=== PATIENT | female | born 1960 | race Caucasian/White ===

== ENCOUNTER 2018-10-07 19:17 | Emergency (ER) | payer MEDICARE, MEDICAID ==
[2018-10-07 19:40] VITALS: BP 174/108
[2018-10-07] MEDS ORDERED: NORMAL SALINE 1000 ML 1,000 ML IV ONE (21:29)
[2018-10-07] MEDS ORDERED: ONDANSETRON HCL INJ/PF 4 MG/2 ML SDV IV ONE (21:29)
--- NOTE | 2018-10-07 21:31 | ER Document Report ---
ED Medical Screen (RME) - General Chief Complaint: Abdominal Pain Stated Complaint: RECTAL BLEEDING Time Seen by Provider: 10/07/18 21:20 Notes: Patient is a 57-year-old female who presents emergency department with a chief complaint of rectal bleeding, vomiting, and abdominal pain. States that she started having her symptoms yesterday. She has been vomiting all night and all day. States that she noticed blood in her stool today. Past medical history includes removal of a portion of her small intestine, stents placed for strokes, and seizures. Patient states that she feels nauseous. Exam: Abdomen-tender I have greeted and performed a rapid initial assessment of this patient. A comprehensive ED assessment and evaluation of the patient, analysis of test results and completion of medical decision making process will be conducted by an additional ED providers. TRAVEL OUTSIDE OF THE [place] IN LAST 30 DAYS: No Past Medical History - Social History Chew tobacco use (# tins/day): No Frequency of alcohol use: None Drug Abuse: None - Past Medical History Cardiac Medical History: Reports: Hx Hypertension Renal/ Medical History: Denies: Hx Peritoneal Dialysis Past Surgical History: Reports: Hx Neurologic Surgery - brain aneurysm x 4 since 2011 Physical Exam - Vital signs Vitals: Temp Pulse Resp BP Pulse Ox 98.2 F 112 H 16 174/108 H 100 10/07/18 19:38 10/07/18 19:38 10/07/18 19:38 10/07/18 19:38 10/07/18 19:38 Course - Vital Signs Vital signs: Temp Pulse Resp BP Pulse Ox 98.2 F 112 H 16 174/108 H 100 10/07/18 19:38 10/07/18 19:38 10/07/18 19:38 10/07/18 19:38 10/07/18 19:38
[2018-10-07 22:47] LABS: HEMATOCRIT 46.6 % (36.0-47.0); HEMOGLOBIN 15.8 g/dL (12.0-15.5); MEAN CORPUSCULAR HEMOGLOBIN 27.9 pg (27.0-33.4); MEAN CORPUSCULAR VOLUME 82 fl (80-97); PLATELET COUNT 177 10^3/uL (150-450); RED BLOOD COUNT 5.67 10^6/uL (3.72-5.28); WHITE BLOOD COUNT 21.5 10^3/uL (4.0-10.5)
[2018-10-07 23:01] LABS: INTERNATIONAL RATION (INR) 0.89; PARTIAL THROMBOPLASTIN TIME 30.3 SEC (23.5-35.8); PROTHROMBIN TIME 12.5 SEC (11.4-15.4)
[2018-10-07 23:07] LABS: ABSOLUTE LYMPHOCYTES# (MANUAL) 3.4 10^3/uL (0.5-4.7); ABSOLUTE MONOCYTES # (MANUAL) 0.6 10^3/uL (0.1-1.4); ABSOLUTE NEUTROPHILS# (MANUAL) 17.4 10^3/uL (1.7-8.2); ANISOCYTOSIS 1+; BASOPHILS % (MANUAL) 0 % (0-2); EOSINOPHILS % (MANUAL) 0 % (0-6); LYMPHOCYTES % (MANUAL) 16 % (13-45); MONOCYTES % (MANUAL) 3 % (3-13); PLATELET COMMENT ADEQUATE; PLATELET GIANT PRESENT; PLATELET LARGE PRESENT; SEGMENTED NEUTROPHILS % (MAN) 81 % (42-78); TOTAL CELLS COUNTED 100
[2018-10-07 23:10] LABS: ALANINE AMINOTRANSFERASE 29 U/L (9-52); ALBUMIN 5.1 g/dL (3.5-5.0); ALKALINE PHOSPHATASE 102 U/L (38-126); ANION GAP 18 (5-19); ASPARTATE AMINO TRANSFERASE 25 U/L (14-36); BILIRUBIN,DIRECT 0.3 mg/dL (0.0-0.4); BILIRUBIN,TOTAL 0.5 mg/dL (0.2-1.3); BLOOD UREA NITROGEN 35 mg/dL (7-20); CALCIUM 10.9 mg/dL (8.4-10.2); CARBON DIOXIDE 25 mmol/L (22-30); CHLORIDE 97 mmol/L (98-107); GLUCOSE 120 mg/dL (75-110); POTASSIUM 3.5 mmol/L (3.6-5.0); SODIUM 140.3 mmol/L (137-145); TOTAL PROTEIN 8.9 g/dL (6.3-8.2)
[2018-10-08] MEDS ORDERED: PROMETHAZINE HCL INJ 25 MG/1 ML VIAL IV ONE (00:41)
[2018-10-08] MEDS ORDERED: MORPHINE SULFATE 10 MG/ML INJ IV ONE (01:19)
[2018-10-08] MEDS ORDERED: ONDANSETRON HCL INJ/PF 4 MG/2 ML SDV IV ONE (01:19)
--- NOTE | 2018-10-08 01:20 | RADIOLOGY REPORT (SQ) ---
EXAM DESCRIPTION: [facility]: CT ABDOMEN PELVIS WITH IV CONTRAST CLINICAL HISTORY: 57 years Female; abdominal pain; rectal bleeding CREAT 1.35 TECHNIQUE: CT of the abdomen and pelvis using intravenous 54 mL Omnipaque [address] scans at this facility use dose modulation, iterative reconstruction, and/or weight based dosing when appropriate to reduce radiation dose to as low as reasonably achievable. COMPARISON: None. FINDINGS: Abdomen: Liver:No focal lesions. No intrahepatic ductal distention. Gallbladder:Negative Pancreas:Within normal limits Spleen: Peripherally calcified structure at the inferior margin 1.6 cm diameter. Right kidney: Extrarenal pelvis is prominent. Ureter is nondistended. No ureteral calculi. No significant calyceal blunting. In the superior margin of the extrarenal pelvis there is a 7 mm calcification, likely vascular. 5 mm hypodensity in the anterolateral cortex of the upper pole is likely a cyst. No acute perinephric edema. Left kidney:No hydronephrosis. No focal lesion. Adrenal glands:Within normal limits Vascular structures: Extensive aortic calcifications. No aneurysm or dissection. At the origin of the left common iliac artery there is a 50-70% stenosis Pelvis: Small bowel:No significant distention. Appendix: Not reliably identified. No regional edema. Colon: Multiple diverticula, mostly along the sigmoid colon. No acute pericolonic edema or colonic distention. No free intraperitoneal fluid or air. Degenerative disc changes are noted in the lumbar spine. No acute bone findings. No pelvic adenopathy. IMPRESSION: 1. Colonic diverticulosis. No CT evidence for acute diverticulitis. 2. Atherosclerosis. Potentially significant stenosis at origin of left common iliac artery. 3. Prominent right extrarenal pelvis, suggesting chronic right UPJ stenosis. No significant hydronephrosis. 4. A 7 mm calcification in the right renal hilum is suspicious for partially calcified renal artery aneurysm. 5. No acute inflammatory changes. No bowel obstruction or perforation. 6. Other chronic findings as described.
[2018-10-08] MEDS ORDERED: PANTOPRAZOLE SODIUM 40 MG VIAL IV ONE (01:21)
[2018-10-08] MEDS ORDERED: RINGERS SOLUTION,LACTATED 1,000 ML IV ONE (01:23)
--- NOTE | 2018-10-08 01:23 | ER Document Report ---
ED General - General Chief Complaint: Abdominal Pain Stated Complaint: RECTAL BLEEDING Time Seen by Provider: 10/07/18 21:20 Mode of Arrival: Ambulatory Information source: Patient, [facility] Records Notes: 57-year-old female with hypertension, previous history of bowel obstruction presents with complaint of nausea, vomiting and bright red blood per rectum. Patient states that vomiting started 2 days prior to arrival. She states that she has greater than 10 episodes of nonbilious nonbloody emesis. Rectal bleeding started this morning after a night of multiple episodes of diarrhea. Patient's bowel obstruction was approximately 3 years ago. She states she had a partial colectomy that did not require an ostomy. Patient is here currently from [facility] visiting her sister. She denies sick contacts. Patient does report undergoing colonoscopy approximately 9 years ago. TRAVEL OUTSIDE OF THE [place] IN LAST 30 DAYS: No - HPI Onset: Other Onset/Duration: Gradual, Persistent Quality of pain: Cramping Severity: Moderate Associated symptoms: Diarrhea, Nausea, Vomiting, Other - Bright red blood per rectum Exacerbated by: Denies Relieved by: Denies Similar symptoms previously: Yes Recently seen / treated by doctor: No Past Medical History - General Information source: Patient - Social History Smoking Status: Current Every Day Smoker Chew tobacco use (# tins/day): No Smoking Education Provided: Yes - Smoking cessation counseling was provided for 4 minutes at the bedside Frequency of alcohol use: None Drug Abuse: None Lives with: Alone Family History: Reviewed & Not Pertinent Patient has suicidal ideation: No Patient has homicidal ideation: No - Past Medical History Cardiac Medical History: Reports: Hx Hypertension Renal/ Medical History: Denies: Hx Peritoneal Dialysis Past Surgical History: Reports: Hx Neurologic Surgery - brain aneurysm x 4 since 2011 Review of Systems - Review of Systems Notes: REVIEW OF SYSTEMS: CONSTITUTIONAL : Denies fever, chills, or sweats. Denies recent illness. Denies weight loss, recent hospitalizations. EENT: Denies visual changes, eye pain. Denies sore throat, oral lesions, difficulty swallowing. CARDIOVASCULAR: Denies chest pain. Denies palpitations. Denies lower extremity edema. RESPIRATORY: Denies cough. Denies shortness of breath, wheezing. GASTROINTESTINAL: Denies abdominal distention. Denies blood in vomitus, stools, Denies black, tarry stools. Denies constipation. GENITOURINARY: Denies difficulty urinating, painful urination, frequency, blood in urine, or vaginal discharge. MUSCULOSKELETAL: Denies back or neck pain or stiffness. Denies joint pain or swelling. SKIN: Denies rash, lesions or sores. HEMATOLOGIC : Denies easy bruising or bleeding. LYMPHATIC: Denies swollen glands. NEUROLOGICAL: Denies confusion or altered mental status. Denies loss of consciousness. Denies dizziness or lightheadedness. Denies headache. Denies weakness or paralysis. Denies problems difficulty with ambulation, slurred speech. Denies sensory loss, numbness, or tingling. Denies seizures. PSYCHIATRIC: Denies anxiety or stress. Denies depression, suicidal ideation, or homicidal ideation. Denies visual or auditory hallucinations. Physical Exam - Vital signs Vitals: Temp Pulse Resp BP Pulse Ox 98.2 F 112 H 16 174/108 H 100 10/07/18 19:38 10/07/18 19:38 10/07/18 19:38 10/07/18 19:38 10/07/18 19:38 - Notes Notes: PHYSICAL EXAMINATION: GENERAL: Well-appearing, well-nourished and in no acute distress. HEAD: Atraumatic, normocephalic. EYES: Pupils equal round and reactive to light, extraocular movements intact, conjunctiva are normal. ENT: Nares patent, oropharynx clear without exudates. Moist mucous membranes. NECK: Normal range of motion, supple without lymphadenopathy LUNGS: Breath sounds clear to auscultation bilaterally and equal. No wheezes rales or rhonchi. HEART: Regular rate and rhythm without murmurs ABDOMEN: Mild diffuse abdominal tenderness with palpation. No guarding, no rebound. No masses appreciated. Rectal: Brown stool, no active bleeding, small external hemorrhoid. Musculoskeletal: Normal range of motion, no pitting or edema. No cyanosis. NEUROLOGICAL: Cranial nerves grossly intact. Normal speech, normal gait. Normal sensory, motor exams PSYCH: Normal mood, normal affect. SKIN: Warm, Dry, normal turgor, no rashes or lesions noted. Course - Re-evaluation Re-evalutation: 10/08/18 01:23 Laboratory 10/07/18 10/07/18 10/07/18 22:21 22:21 22:21 WBC 21.5 H RBC 5.67 H Hgb 15.8 H Hct 46.6 MCV 82 MCH 27.9 MCHC 34.0 RDW 15.0 H Plt Count 177 Total Counted 100 Seg Neutrophils % Not Reportable Seg Neuts % (Manual) 81 H Lymphocytes % Not Reportable Lymphocytes % (Manual) 16 Monocytes % Not Reportable Monocytes % (Manual) 3 Eosinophils % Not Reportable Eosinophils % (Manual) 0 Basophils % Not Reportable Basophils % (Manual) 0 Absolute Neutrophils Not Reportable Abs Neuts (Manual) 17.4 H Absolute Lymphocytes Not Reportable Abs Lymphs (Manual) 3.4 Absolute Monocytes Not Reportable Abs Monocytes (Manual) 0.6 Absolute Eosinophils Not Reportable Absolute Eos (Manual) 0.0 Absolute Basophils Not Reportable Abs Basophils (Manual) 0.0 Large Platelets PRESENT Giant Platelets PRESENT Platelet Comment ADEQUATE Anisocytosis 1+ PT 12.5 INR 0.89 APTT 30.3 Sodium 140.3 Potassium 3.5 L Chloride 97 L Carbon Dioxide 25 Anion Gap 18 BUN 35 H Creatinine 1.35 H Est GFR ( Amer) 49 L Est GFR (Non-Af Amer) 40 L Glucose 120 H Calcium 10.9 H Total Bilirubin 0.5 Direct Bilirubin 0.3 Neonat Total Bilirubin Not Reportable Neonat Direct Bilirubin Not Reportable Neonat Indirect Bili Not Reportable AST 25 ALT 29 Alkaline Phosphatase 102 Total Protein 8.9 H Albumin 5.1 H Abdomen/Pelvis CT 10/07/18 21:27 IMPRESSION: 1. Colonic diverticulosis. No CT evidence for acute diverticulitis. 2. Atherosclerosis. Potentially significant stenosis at origin of left common iliac artery. 3. Prominent right extrarenal pelvis, suggesting chronic right UPJ stenosis. No significant hydronephrosis. 4. A 7 mm calcification in the right renal hilum is suspicious for partially calcified renal artery aneurysm. 5. No acute inflammatory changes. No bowel obstruction or perforation. 6. Other chronic findings as described. Temp Pulse Resp BP Pulse Ox 98.2 F 112 H 16 174/108 H 100 10/07/18 19:38 10/07/18 19:38 10/07/18 19:38 10/07/18 19:38 10/07/18 19:38 57-year-old female with hypertension, previous history of bowel obstruction presents with complaint of nausea, vomiting and bright red blood per rectum. Patient states that vomiting started 2 days prior to arrival. She states that she has greater than 10 episodes of nonbilious nonbloody emesis. Rectal bleeding started this morning after a night of multiple episodes of diarrhea. Vital signs reviewed upon arrival patient is tachycardic, hypertensive. Previous medical records and nursing notes reviewed. Patient does not appear toxic or dehydrated. But she does appear to be uncomfortable. Abdominal exam is significant for diffuse tenderness without focal tenderness to the left lower quadrant, right lower quadrant or right upper quadrant. CT of the abdomen pelvis were obtained and showed significant atherosclerotic disease including 50 to 70% stenosis of the left iliac. Patient's lower extremities are warm, nontender and with strong pulses in the femoral, popliteal, DP and PT arteries. 10/08/18 02:47 Patient reevaluated after receiving morphine, Zofran and she reports resolution of her pain and nausea. Incidental findings on her CAT scan were discussed with the patient at length including significant atherosclerosis and stenosis. Smoking cessation urged. Patient has strong DP and PT pulses bilaterally. Feet and legs are warm, nontender. Patient able to tolerate fluids prior to discharge. 10/08/18 03:29 10/08/18 03:30 Patient was evaluated and treated as appropriate for the patient's presenting symptoms and complaint, with consideration of any critical or life threatening conditions that may be associated with their obtained history and exam as noted above. All results were discussed with patient and her friend who is at the bedside. Patient provided the opportunity to ask questions, and express concerns. Patient was educated on treatments based on their presumed diagnosis as noted above. At this time we will discharge the patient with return precautions and follow-up recommendations. Verbal discharge instructions given a the bedside. Medication warnings reviewed. Patient is in agreement with this plan and has verbalized understanding of return precautions. After careful consideration I feel that that patient can be safely discharged from the emergency department, they were advised to followup with a primary care physician in 2-3 days. Dictation on this chart was performed using voice recognition software and may result in unintended grammatical, spelling, syntax or errors. - Vital Signs Vital signs: Temp Pulse Resp BP Pulse Ox 98.2 F 112 H 16 174/108 H 100 10/07/18 19:38 10/07/18 19:38 10/07/18 19:38 10/07/18 19:38 10/07/18 19:38 - Laboratory Result Diagrams: 10/07/18 22:21 10/07/18 22:21 Laboratory results interpreted by me: 10/07/18 10/07/18 22:21 22:21 WBC 21.5 H RBC 5.67 H Hgb 15.8 H RDW 15.0 H Seg Neuts % (Manual) 81 H Abs Neuts (Manual) 17.4 H Potassium 3.5 L Chloride 97 L BUN 35 H Creatinine 1.35 H Est GFR ( Amer) 49 L Est GFR (Non-Af Amer) 40 L Glucose 120 H Calcium 10.9 H Total Protein 8.9 H Albumin 5.1 H - Diagnostic Test Radiology reviewed: Image reviewed, Reports reviewed Discharge - Discharge Clinical Impression: Nausea vomiting and diarrhea, Generalized abdominal pain, Atherosclerotic cardiovascular disease, Diverticulosis, Tobacco dependence, Bright red blood per rectum Condition: Good Disposition: HOME, SELF-CARE Instructions: Abdominal Pain ([facility]), Diarrhea, Nonspecific ([facility]), Intravenous (IV) Fluids ([facility]), Rectal Bleeding, Unclear Cause ([facility]), Vomiting ([facility]) Additional Instructions: Your CAT scan today shows significant arterial disease likely secondary to smoking. It also showed narrowing of your vessels in your abdomen and the vessels leading into your legs. It is imperative that you follow-up with your primary care physician and a vascular surgeon when you return home. Please bring the copy of your imaging report with you to your primary care physician's office. Please follow-up with him as soon as you can. Follow up with your [id number] hours for further care or return to the ED IMMEDIATELY if symptoms worsen or you have any concerns. If you cannot afford to follow up with your primary care physician a list of low cost clinics have been provided at the end of your discharge papers as well. Most prescribed medications have multiple side effects. The safest thing to do is when filling your prescription speak to your pharmacist regarding possible interactions with your normal home medications and over the counter medications such as Ibuprofen, Tylenol, Benadryl. If you experience any symptoms that cause you discomfort or concern you should discontinue the medication immediately and return to the emergency room or call your primary care physician. Prescriptions: Ondansetron [Zofran Odt 4 mg Tablet] 1 - 2 tab PO Q4H PRN #15 tab.rapdis PRN Reason: For Nausea/Vomiting Forms: Smoking Cessation Education, Elevated Blood Pressure Referrals: JACOBO GARCIA MD [ACTIVE STAFF] - Follow up in 3-5 days
[2018-10-08] MEDS ORDERED: METRONIDAZOLE 500 MG TABLET PO ONE (02:16)
[2018-10-08] MEDS ORDERED: CIPROFLOXACIN 400 MG/D5W RTU 400 MG/200 ML RTUPB IV SCH (02:30)
[2018-10-08] MEDS ORDERED: HYDROCODONE/ACETAMINOPHEN 5-325 MG (6 TAB/ER DISP) PO PRN (02:56)
== END 2018-10-08 04:15 | disposition home or self-care (01) ==
LOC: ER 19:17
DX: R10.84 Generalized abdominal pain (principal); K57.30 Diverticulosis of large intestine without perforation or abscess without bleeding; R00.0 Tachycardia, unspecified; I70.8 Atherosclerosis of other arteries; I25.10 Atherosclerotic heart disease of native coronary artery without angina pectoris; I10 Essential (primary) hypertension; R10.817 Generalized abdominal tenderness; K64.9 Unspecified hemorrhoids; K62.5 Hemorrhage of anus and rectum; R11.2 Nausea with vomiting, unspecified; R19.7 Diarrhea, unspecified; F17.200 Nicotine dependence, unspecified, uncomplicated; Z71.6 Tobacco abuse counseling; Z87.19 Personal history of other diseases of the digestive system
CPT/HCPCS: 96376; 99284 ×2; 96372; 96361 ×2; 96374; 96375; 96365; 36415 ×2; 83690; 85025 ×2; 85610; 85730; 80053 ×2; 81001; 74022; 74177; J2270; C9113; J2550; J2405 ×2; A9270; J7030 ×2; J7120; J0744; S0164

== ENCOUNTER 2018-10-08 18:27 | Emergency (ER) | payer MEDICARE, MEDICAID ==
[2018-10-08] MEDS ORDERED: ONDANSETRON HCL INJ/PF 4 MG/2 ML SDV IV ONE (19:47)
[2018-10-08] MEDS ORDERED: NORMAL SALINE 1000 ML 1,000 ML IV ONE (19:47)
--- NOTE | 2018-10-08 19:50 | ER Document Report ---
ED Medical Screen (RME) - General Chief Complaint: Abdominal Pain Stated Complaint: ABDOMINAL PAIN Time Seen by Provider: 10/08/18 19:42 Mode of Arrival: Medic Information source: Patient TRAVEL OUTSIDE OF THE [place] IN LAST 30 DAYS: No - HPI Patient complains to provider of: JULIO WRIGHT, N/V Notes: 10/08/18 19:48 Patient is here with complaints of abdominal pain with nausea vomiting. Patient was seen yesterday for the same symptoms. Lab work showed a white count of 21, the remainder of her labs were unremarkable. CT the abdomen pelvis showed no acute abnormalities within the abdomen and pelvis with a 50 to 70% stenosis in the iliac artery. Patient was instructed instructed that she had these findings. She does have a history of prior abdominal surgeries as well as bowel obstruction. Patient's states that she is now having worsening pain, she has not been able to keep anything at all down today. Exam Patient appears uncomfortable, holding a vomit bag. Mild diffuse tenderness to palpation of her abdomen on limited triage abdominal exam. Lungs clear and equal throughout. Mild tachycardia. Heart sounds otherwise normal. Plan CBC, CMP, lipase, urine, saline lock, Zofran, fluids. Since she just had a CT done yesterday, I have ordered plain films to assess for signs of possible obstruction due to her history. An initial examination was made on the patient as part of the triage process, and it was determined a more comprehensive evaluation was necessary. Initial labs were ordered and patient was transferred to another provider in the ED who assumed care and finished evaluation and plan. - Related Data Allergies/Adverse Reactions: No Known Allergies Allergy (Unverified 10/08/18 18:38) Past Medical History - Past Medical History Cardiac Medical History: Reports: Hx Hypertension Renal/ Medical History: Denies: Hx Peritoneal Dialysis Past Surgical History: Reports: Hx Neurologic Surgery - brain aneurysm x 4 since 2011 Physical Exam - Vital signs Vitals: Temp Pulse Resp BP Pulse Ox 98.6 F 96 18 158/112 H 95 10/08/18 18:46 10/08/18 18:46 10/08/18 18:46 10/08/18 18:46 10/08/18 18:46 Course - Vital Signs Vital signs: Temp Pulse Resp BP Pulse Ox 98.6 F 96 18 158/112 H 95 10/08/18 18:46 10/08/18 18:46 10/08/18 18:46 10/08/18 18:46 10/08/18 18:46
--- NOTE | 2018-10-08 20:40 | RADIOLOGY REPORT (SQ) ---
EXAM DESCRIPTION: XR ABDOMEN SUPINE AND ERECT WITH CHEST (ABD ACUTE SERIES) COMPLETED DATE/TME: 10/08/2018 19:48 CLINICAL HISTORY: 57 years Female ,ABDO PAIN, N/V COMPARISON: None. TECHNIQUE: Frontal view chest x-ray and two views of the abdomen. FINDINGS: The cardiomediastinal silhouette appears unremarkable. No consolidating infiltrates or pleural effusions. No free air is identified beneath the hemidiaphragms. No dilated loops of bowel to suggest obstruction. Mild S-type thoracic lumbar scoliosis. Calcific density in the left upper quadrant correlates with focus of calcification in the inferior aspect of the spleen likely a splenic cyst. An additional curvilinear calcification in the left upper quadrant measuring 1.5 cm likely a splenic artery aneurysm. Note is also made of the area of calcification in the region of the right renal artery which may reflect a right renal artery aneurysm. IMPRESSION: No acute plain film abnormality is identified. 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 NUMBER OF VIEWS: TECHNIQUE: LIMITATIONS: None. FINDINGS: IMPRESSION: copyright 2010 [employer]- All Rights Reserved
[2018-10-08 20:46] LABS: HEMATOCRIT 47.3 % (36.0-47.0); HEMOGLOBIN 16.1 g/dL (12.0-15.5); MEAN CORPUSCULAR HEMOGLOBIN 27.7 pg (27.0-33.4); MEAN CORPUSCULAR VOLUME 81 fl (80-97); PLATELET COUNT 180 10^3/uL (150-450); RED BLOOD COUNT 5.83 10^6/uL (3.72-5.28); RED CELL DISTRIBUTION WIDTH 14.8 % (11.5-14.0); WHITE BLOOD COUNT 22.6 10^3/uL (4.0-10.5)
[2018-10-08 20:57] LABS: ALANINE AMINOTRANSFERASE 24 U/L (9-52); ALBUMIN 5.2 g/dL (3.5-5.0); ALKALINE PHOSPHATASE 103 U/L (38-126); ASPARTATE AMINO TRANSFERASE 32 U/L (14-36); BILIRUBIN,DIRECT 0.4 mg/dL (0.0-0.4); BILIRUBIN,TOTAL 0.9 mg/dL (0.2-1.3); BLOOD UREA NITROGEN 22 mg/dL (7-20); CALCIUM 10.4 mg/dL (8.4-10.2); GLUCOSE 117 mg/dL (75-110); LIPASE 61.9 U/L (23-300); POTASSIUM 3.5 mmol/L (3.6-5.0)
[2018-10-08 21:02] LABS: ABSOLUTE LYMPHOCYTES# (MANUAL) 2.5 10^3/uL (0.5-4.7); ABSOLUTE MONOCYTES # (MANUAL) 1.1 10^3/uL (0.1-1.4); BASOPHILS % (MANUAL) 0 % (0-2); CARBON DIOXIDE 27 mmol/L (22-30); CHLORIDE 93 mmol/L (98-107); EOSINOPHILS % (MANUAL) 0 % (0-6); LYMPHOCYTES % (MANUAL) 11 % (13-45); MONOCYTES % (MANUAL) 5 % (3-13); SEGMENTED NEUTROPHILS % (MAN) 84 % (42-78); SODIUM 140.3 mmol/L (137-145); TOTAL CELLS COUNTED 100
[2018-10-08 21:04] LABS: ANISOCYTOSIS SLIGHT
[2018-10-08 21:05] LABS: PLATELET CLUMPS PRESENT; PLATELET COMMENT ADEQUATE; PLATELET LARGE PRESENT
[2018-10-08 21:09] LABS: ANION GAP 20 (5-19)
[2018-10-09 02:02] LABS: APPEARANCE,URINE CLEAR; BILIRUBIN,URINE NEGATIVE (NEGATIVE); COLOR,URINE STRAW; GLUCOSE, URINE NEGATIVE (NEGATIVE); KETONES,URINE 20 mg/dL (NEGATIVE); LEUKOCYTE ESTERASE,URINE NEGATIVE (NEGATIVE); NITRITE,URINE NEGATIVE (NEGATIVE); PROTEIN,URINE 100 mg/dL (NEGATIVE); UROBILINOGEN,URINE NEGATIVE mg/dL (<2.0)
[2018-10-09] MEDS ORDERED: PROMETHAZINE HCL INJ 25 MG/1 ML VIAL IM ONE (03:00)
--- NOTE | 2018-10-09 03:07 | ER Document Report ---
ED General - General Chief Complaint: Abdominal Pain Stated Complaint: ABDOMINAL PAIN Time Seen by Provider: 10/08/18 19:42 Mode of Arrival: Medic TRAVEL OUTSIDE OF THE [place] IN LAST 30 DAYS: No - HPI Notes: Patient is a 57-year-old female with multiple medical issues, including history of multiple bowel surgeries and obstruction, who presents to the emergency department for evaluation of nausea, vomiting, abdominal pain. She was actually seen here yesterday for similar. She states since then she has not keeping anything down. She states that her vomit has been yellow. She states she had one bowel movement today and it was mostly bright red blood. Her pain is diffuse and crampy in nature. No known fevers. No urinary symptoms. She does have a history of high blood pressure. She states she takes lisinopril 40 mill grams daily. She has not had in the last 2 days that she has not been able to keep anything down. - Related Data Allergies/Adverse Reactions: No Known Allergies Allergy (Unverified 10/08/18 18:38) Past Medical History - General Information source: Patient - Social History Smoking Status: Current Every Day Smoker Family History: Reviewed & Not Pertinent Patient has suicidal ideation: No Patient has homicidal ideation: No - Past Medical History Cardiac Medical History: Reports: Hx Coronary Artery Disease, Hx Hypertension Renal/ Medical History: Denies: Hx Peritoneal Dialysis GI Medical History: Reports: Hx Gastritis Past Surgical History: Reports: Hx Neurologic Surgery - brain aneurysm x 4 since 2011, Other - Partial colectomy Review of Systems - Review of Systems Constitutional: Malaise EENT: No symptoms reported Cardiovascular: No symptoms reported Respiratory: No symptoms reported Gastrointestinal: See HPI Genitourinary: No symptoms reported Musculoskeletal: No symptoms reported Skin: No symptoms reported Neurological/Psychological: No symptoms reported Physical Exam - Vital signs Vitals: Temp Pulse Resp BP Pulse Ox 98.6 F 96 18 158/112 H 95 10/08/18 18:46 10/08/18 18:46 10/08/18 18:46 10/08/18 18:46 10/08/18 18:46 - Notes Notes: Vital signs reviewed, please refer to chart. Patient is normocephalic, atraumatic. Pupils equal round, reactive to light. Neck is supple without meningismus. Heart is regular rate and rhythm. Lungs are clear to auscultation bilaterally. Abdomen is soft, diffusely tender without rebound or guarding, normoactive bowel sounds throughout. Extremities without cyanosis, clubbing, edema. Peripheral pulses are equal. Skin is warm and dry. Patient is awake, alert, neurological exam is nonfocal. Rectal exam performed. External hemorrhoid noted. Small amount of bright red blood in the rectal vault. Course - Re-evaluation Re-evalutation: 10/09/18 03:04 Patient presents to the emergency department for evaluation. She had laboratory investigations ordered through triage, as well as abdominal series. I did review her CT scan from yesterday, which showed some vascular issues, diverticulosis, but nothing acute. Plain films today failed to show any signs of obstruction. Laboratory investigations today revealed an elevated white blood cell count, hemoglobin is not significantly changed. Serial abdominal exams are globally tender but nonfocal, nonsurgical. Patient claims to have vomited multiple times. I spoke with nursing, multiple PCT's. No emesis was witnessed here. She does not have any emesis in her bag, and her garbage can, or in her sink. Patient asks again for something for nausea, states the Phenergan normally works better. At this point I do not see any acute pathology which would warrant admission to the hospital. She is not dehydrated. She was given IV fluids here. We will go ahead and give her some IM Phenergan. She has had endoscopy and colonoscopy in the past. She is here visiting her sister from out of town. She needs to follow-up with her primary care physician as well as her literacy teacher. She is to return to the emergency department with worsening or new concerning symptoms of any sort. 10/09/18 03:25 Patient's blood pressure was elevated here. She has a nonfocal neurological exam. She is not having any chest pain, difficulty breathing. She did urinate here. She has no signs of endorgan damage. She has not been able to keep down her blood pressure medicines. Will order lisinopril 40 mg and continue to mon itor. - Vital Signs Vital signs: Temp Pulse Resp BP Pulse Ox 98.7 F 96 18 156/106 H 96 10/09/18 03:02 10/08/18 18:46 10/08/18 18:46 10/09/18 02:30 10/09/18 03:02 - Laboratory Result Diagrams: 10/08/18 20:25 05/01/19 20:25 Laboratory results interpreted by me: 10/08/18 10/08/18 10/09/18 20:25 20:25 01:29 WBC 22.6 H RBC 5.83 H Hgb 16.1 H Hct 47.3 H RDW 14.8 H Seg Neuts % (Manual) 84 H Lymphocytes % (Manual) 11 L Abs Neuts (Manual) 19.0 H Potassium 3.5 L Chloride 93 L Anion Gap 20 H BUN 22 H Glucose 117 H Calcium 10.4 H Total Protein 9.0 H Albumin 5.2 H Urine Protein 100 H Urine Ketones 20 H Discharge - Discharge Clinical Impression: Generalized abdominal pain, Bright red blood per rectum, Nausea and vomiting Condition: Stable Disposition: HOME, SELF-CARE Instructions: Abdominal Pain ([facility]), Antinausea Medication ([facility]), Intravenous (IV) Fluids ([facility]) Additional Instructions: Clear liquids only. Advance slowly to bland diet. You need to follow-up with your primary care physician within 1 week. Go back to gastroenterology for further evaluation. Return to emergency department with worsening or new concerning symptoms of any sort.
[2018-10-09 03:16] VITALS: BP 156/106
[2018-10-09] MEDS ORDERED: LISINOPRIL 10 MG TABLET PO ONE (03:24)
== END 2018-10-09 03:40 | disposition home or self-care (01) ==
LOC: ER 18:27
DX: K57.90 Diverticulosis of intestine, part unspecified, without perforation or abscess without bleeding (principal); R11.2 Nausea with vomiting, unspecified; R10.84 Generalized abdominal pain; R19.5 Other fecal abnormalities; R19.7 Diarrhea, unspecified; R10.9 Unspecified abdominal pain; F17.200 Nicotine dependence, unspecified, uncomplicated; I10 Essential (primary) hypertension; I25.10 Atherosclerotic heart disease of native coronary artery without angina pectoris
CPT/HCPCS: 99284; 96372; 96361; 96374; 36415; 83690; 85025; 80053; 81001; 74022; J2550; J2405; J7030; A9270

== ENCOUNTER 2019-05-02 10:40 | Emergency (ER) | payer MEDICARE, MEDICAID ==
--- NOTE | 2019-05-02 11:01 | ER Document Report ---
ED Medical Screen (RME) - General Chief Complaint: Abdominal Pain Stated Complaint: ABDOMINAL PAIN Time Seen by Provider: 05/02/19 10:58 TRAVEL OUTSIDE OF THE [place] IN LAST 30 DAYS: No - HPI Notes: 05/02/19 10:58 Patient is a 58-year-old female who arrived by ambulance complaining of mid abdominal pain that is described as severe as well as nausea and vomiting that began today. Patient does have a history of GI surgeries, obstruction, diverticulosis. Patient does have hypertension, but did not take her medicine today. She is currently 220 over 100's. Patient did arrive tachycardic and tachypneic without fever. I have treated and performed a rapid initial assessment of this patient. A comprehensive ED assessment and evaluation of the patient, analysis of test results and completion of medical decision making process will be conducted by additional ED providers. PHYSICAL EXAMINATION: GENERAL: Pt appears uncomfortable with noted bile in emesis bag. Abd: + tenderness throughout increased to mid/lower. Heart: tachycardic. - Related Data Allergies/Adverse Reactions: No Known Allergies Allergy (Unverified 10/08/18 18:38) Past Medical History - Past Medical History Cardiac Medical History: Reports: Hx Coronary Artery Disease, Hx Hypertension Renal/ Medical History: Denies: Hx Peritoneal Dialysis GI Medical History: Reports: Hx Gastritis Past Surgical History: Reports: Hx Neurologic Surgery - brain aneurysm x 4 since 2011, Other - Partial colectomy
[2019-05-02] MEDS ORDERED: METOCLOPRAMIDE HCL INJ/PF 10 MG/2 ML SDV IV ONE (11:05)
--- NOTE | 2019-05-02 11:14 | ER Document Report ---
ED General - General Chief Complaint: Abdominal Pain Stated Complaint: ABDOMINAL PAIN Time Seen by Provider: 05/02/19 10:58 TRAVEL OUTSIDE OF THE [place] IN LAST 30 DAYS: No - HPI Notes: 58wf she reports h/o "multiple craniotomies to perform clippings of various "brain aneurysms" most recent yr ago, asys also has h/o "aneurysms in kidneys", "mult bowel surgeries for adhesions last performed >1 y/a--all [place] state), htn, bib today by ems she says for severe abd pain and vomiting/nausea, inability to hold down meds/food. she says this abdominal pain if very generalized and all over her abdomen, and has been worsening since last night. overnight last night had ++nasusea & ~4 episodes of nonbloody vomiting keeping her up much of night. last meal yesterday, last usual meds were pm meds but started vomited hr after those. EMS report gave 4 odt zofran; pt says hasn't helped and she threw up soon after that once placed in ED room here right before i'm interviewing her. she denies larsen/chest pain, focal neuro deficits or vision chagnes. denies new falls or trauma. Last BM yesterday was ok she said hasn't noticed passing gas today. pain worse w/ vomiting. deneis any other recent diarr hea, difficulty w/ bm, f/c/s. only records available to access via EMR show most recent med refills by sung lorenzo, latrell vidal and roly oconnell on 03/17/19 for 30d suppy 10mg norvasc, 20mg lisinopril, statin 40mg QD - Related Data Allergies/Adverse Reactions: latex Allergy (Verified 05/08/19 16:28) Past Medical History - General Information source: Patient - poor historian, initially hx very limitied 2/2 actively vomiting and pain - Social History Smoking Status: Unknown if Ever Smoked Drug Abuse: Other - she ddnies ilicit drug use in a very generalized question (didn't probe her about detials of any other substance use dependence) Family History: Reviewed & Not Pertinent Patient has suicidal ideation: No Patient has homicidal ideation: No - Past Medical History Cardiac Medical History: Reports: Hx Coronary Artery Disease, Hx Hypertension Renal/ Medical History: Denies: Hx Peritoneal Dialysis GI Medical History: Reports: Hx Gastritis. Denies: Hx Crohn's Disease, Hx Hiatal Hernia, Hx Irritable Bowel, Hx Liver Failure, Hx Pancreatitis, Hx Ulcer, Hx Ulcerative Colitis Past Surgical History: Reports: Hx Neurologic Surgery - brain aneurysm x 4 since 2011, Other - Partial colectomy Review of Systems - Review of Systems Constitutional: See HPI, Weakness. denies: Chills, Diaphoresis, Fever, Weight gain, Weight loss, Recent illness EENT: No symptoms reported Cardiovascular: No symptoms reported Respiratory: No symptoms reported Gastrointestinal: See HPI, Vomiting, Poor appetite, Poor fluid intake. denies: Abdomen distended, Diarrhea, Constipation, Blood streaked bowels, Blood in vomit, Black stools, Rectal bleeding, Fecal incontinence Genitourinary: No symptoms reported Female Genitourinary: No symptoms reported Musculoskeletal: No symptoms reported Skin: No symptoms reported Hematologic/Lymphatic: No symptoms reported Neurological/Psychological: No symptoms reported Physical Exam - Vital signs Vitals: Temp 98.7 F 05/02/19 10:41 Interpretation: Hypertensive, Tachycardic - first few sets of initial VS performed during active retching/vomiting episodes - General General appearance: Alert, Other In distress: Moderate - 2/2 active vomiting - HEENT Head: Normocephalic, Atraumatic. No: Abrasions Eyes: No: Pale conjunctiva, Scleral icterus Conjunctiva: No: Injected Extraocular movements intact: Yes Pupils: PERRL Nerve palsy: No Visual graff normal: Yes - grossly External canal: Normal Tympanic membrane: Normal Sinus: Normal Nasal: Normal Mouth/Lips: No: Laceration, Lesions Mucous membranes: Dry Pharynx: Normal. No: Erythema, Exudate Neck: Supple. No: Lymphadenopathy, Meningismus, Neck mass, Thyroid nodule, Thyromegally - Respiratory Respiratory status: No respiratory distress. No: Respiratory distress - when not vomiting at rest no respiratory distress or hypoxia, Agonal respirations, Cyanosis, Labored, Pursed lip breathing, Retractions Chest status: Nontender. No: Ecchymosis, Wounds Breath sounds: Normal. No: Rales, Rhonchi, Stridor, Wheezing - Cardiovascular Rhythm: Regular, Tachycardia Murmur: No Friction rub: No Gallop: None auscultated Pulses: Normal: Radial - tachy symm b/l , Dorsalis pedis - tachy symm b/l Normal capillary refill: Yes - Abdominal Inspection: Other - no overlying skin changes. No: Caput medussa, Striae, Wounds Distension: No distension. No: Tympanitic, Distended bladder Bowel sounds: Hypoactive Tenderness: Tender - very diffuse nonfocal exam +guarding w/o rebound, Guarding. No: McBurney's point, Prasad's sign, Rebound Organomegaly: No organomegaly - Back Back: No: Deformity/step-off, CVA tenderness, Vertebra tenderness, Scoliosis, Wounds - Extremities General upper extremity: Normal inspection General lower extremity: Normal inspection Hip: Normal. No: Tender, Ecchymosis Thigh: Normal. No: Tender, Ecchymosis - Neurological Neuro grossly intact: Yes Cognition: Normal Orientation: AAOx4 Brianna Coma Scale Eye Opening: Spontaneous Brianna Coma Scale Verbal: Oriented Brianna Coma Scale Motor: Obeys Commands [place] Coma Scale Total: 15 Speech: Normal Cranial nerves: Normal Cerebellar coordination: Normal Motor strength normal: LUE, RUE, LLE, RLE Additional motor exam normals: No: Involuntary movements, Pronator drift Sensory: Normal - Psychological Associated symptoms: Normal affect, Normal mood. No: Aggressive, Agitated, Combative - Skin Skin Temperature: Warm Skin Moisture: Dry Skin Color: Normal Skin irregularity: negative: Erythema, Lesion, Rash Course - Vital Signs Vital signs: Temp Pulse Resp BP Pulse Ox 98.3 F 18 152/85 H 100 05/02/19 16:16 05/02/19 16:55 05/02/19 16:55 05/02/19 16:55 briefly saw pt when initially roomed since activing vomiting and tachycardic very hypertensive, reporting significant diffuse abd pain, had vomit x1 in emesis bag nonbloody. started 1st liter LR and admin 0.5 dilaudid iv, 25 phergan iv which significant improvement in BP, hr and pain level. did not have to give labetalol id ordered for event that her VS hadn't improved w/ control of sx. started 2nd L ivlr. HR and BP remained ~100 and 150/90 which from past seemed to be her usual when not in extremis actively vomiting. labs reviewed: renal funciton wnl. K slightly low 3.4, otherwise metab panel wnl. lipase neg. wbc 17 w/ left shift. the few prior times she's been to our system wbc in 20s, her being ill those times though. her H/H wnl. UA showed ketones, glu, prot. lactic acid 2.1 which were all sent prior to 2l ivf. does not have h/o DM serum glu wnl. labs c/w history vomiting and no po intake >12 hr. she cont to report having no cp or sob. her abd pain was significantly better ~1 hrs s/p initial Rxs. i rec we try oral meds to see if she could keep them down. she reported improvement w/ po tylenol. VS remained stable and remained afebrile CT a/p w/ iv contrast: didn't show any evidence of partial/complete SBO, and no inflammatoy changes. +diverticulosis w/o -itis. no evidence of pancreatic or GB process/inflammation. 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 pt did appear mcuh improved, and agreed could fill her two bp meds tonight if i were to write her a few days until she saw her pcp (calling jd for 1st available and to let them know she's been out of meds and had an ED visit. also wrote her short course of oral potassium if needed but instructed she can obtain in her diet w/ fruits, vegetables, juices. i suggested i didn't find a specific explanation for her vomiting and pain on her CT scan, but that her abdomen is soft now, and she is tolerating po; she said she felt comfortable w/ disposition to d/c home, but says in event of any return of nausea/vomiting or pain would need to seek immediate medical attention. i suggested it could have been a very transient bowel obstruction, but we should have seen some evidence of inflammatory change on her CT. we discussed the dangers of her BP being uncontrolled w/ her history of aneurysms in multiple locations including brain which would increase her risk of rupture; therefore of utmost importance she not let her meds lapse again. she says she understands. she also agrees if she does develop ANY headache/vision change dizziness, vertigo, vomiting, chest pain or sob or weakness or near/passing out these are absolute reasons she'll need to seek attn prior to her PCP appt. 05/12/19 23:35 - Laboratory Result Diagrams: 05/02/19 11:05 05/02/19 11:05 Laboratory results interpreted by me: 05/02/19 05/02/19 05/02/19 11:05 11:05 14:40 WBC 17.4 H RBC 5.99 H Hgb 16.0 H Hct 48.1 H MCH 26.6 L RDW 15.2 H Plt Count 122 L Seg Neuts % (Manual) 94 H Lymphocytes % (Manual) 3 L Abs Neuts (Manual) 16.4 H Potassium 3.5 L Glucose 161 H Calcium 10.5 H AST 94 H Total Protein 9.1 H Albumin 5.3 H Urine Protein >=500 H Urine Glucose (UA) 50 H Urine Ketones 20 H - Diagnostic Test Radiology reviewed: Image reviewed - cxr 1v upright no free air under diaphragm, no other apparent acute pulmonary/thoracic process on this 1v. CT a/p w/ iv contrast rad interpretation reviewed: unchanged 1.4 cm aneurysm of splenic vs? gastric branch artery, unchanged 9mm calcified aneur superior pole R renal aa, unchanged dilation R renal pelvis w/o stone obstruc. + diverticulosis w/o assc inflammation. no evidence GB disease., Reports reviewed - EKG Interpretation by Me Additional EKG results interpreted by me: 05/12/19 23:33 sinus tachycardia rate 100s, evidence of LVH w/o prior ecg for comparison. intervals wnl, voltage wnl. no ST elev/dep or other ischemic patterns. Discharge - Discharge Clinical Impression: Vomiting, Abdominal pain, History of aneurysm of visceral vessel, History of cerebral aneurysm Condition: Fair Disposition: HOME, SELF-CARE Additional Instructions: Please watch for any fevers chills sweats, return of abdominal pain that persists, inability to pass gas or have a bowel movement or return of vomiting. Your CT today showed no evidence of obstruction or inflammatory process, and your abdominal exam was reassuring after we treated your nausea. Therefore it may have been that you did have a very intermittent obstruction, and for this reason I just want you to watch out for those signs above and seek medical attention if he were to have them again. Otherwise follow-up with your regular doctor as scheduled on May 12. Your potassium here was slightly low at 3.5 (normal 4), therefore you can feel the potassium tablet I have prescribed or just get more potassium in your diet through fruits and vegetables.
[2019-05-02 11:25] LABS: HEMATOCRIT 48.1 % (36.0-47.0); MEAN CORPUSCULAR HEMOGLOBIN 26.6 pg (27.0-33.4); MEAN CORPUSCULAR HGB CONC 33.2 g/dL (32.0-36.0); MEAN CORPUSCULAR VOLUME 80 fl (80-97); PLATELET COUNT 122 10^3/uL (150-450); RED BLOOD COUNT 5.99 10^6/uL (3.72-5.28); RED CELL DISTRIBUTION WIDTH 15.2 % (11.5-14.0); WHITE BLOOD COUNT 17.4 10^3/uL (4.0-10.5)
[2019-05-02] MEDS: NORMAL SALINE 1000 ML 1,000 ML IV PRN ×2 (11:35→12:49)
[2019-05-02] MEDS ORDERED: PROMETHAZINE HCL INJ 25 MG/1 ML VIAL IV ONE (11:40)
[2019-05-02] MEDS ORDERED: HYDROMORPHONE HCL INJ/PF 2 MG/ML AMPULE IV ONE (11:40)
[2019-05-02 11:42] LABS: ALBUMIN 5.3 g/dL (3.5-5.0); ALKALINE PHOSPHATASE 118 U/L (38-126); ANION GAP 19 (5-19); ASPARTATE AMINO TRANSFERASE 94 U/L (14-36); BILIRUBIN,DIRECT 0.2 mg/dL (0.0-0.4); BILIRUBIN,TOTAL 0.9 mg/dL (0.2-1.3); BLOOD UREA NITROGEN 15 mg/dL (7-20); CALCIUM 10.5 mg/dL (8.4-10.2); CARBON DIOXIDE 25 mmol/L (22-30); CHLORIDE 98 mmol/L (98-107); GLUCOSE 161 mg/dL (75-110); POTASSIUM 3.5 mmol/L (3.6-5.0); TOTAL PROTEIN 9.1 g/dL (6.3-8.2)
[2019-05-02 11:53] LABS: ABSOLUTE LYMPHOCYTES# (MANUAL) 0.5 10^3/uL (0.5-4.7); ABSOLUTE MONOCYTES # (MANUAL) 0.5 10^3/uL (0.1-1.4); BASOPHILS % (MANUAL) 0 % (0-2); EOSINOPHILS % (MANUAL) 0 % (0-6); LYMPHOCYTES % (MANUAL) 3 % (13-45); MONOCYTES % (MANUAL) 3 % (3-13); SEGMENTED NEUTROPHILS % (MAN) 94 % (42-78); TOTAL CELLS COUNTED 100
[2019-05-02 11:54] LABS: ANISOCYTOSIS SLIGHT; PLATELET COMMENT DECREASED; PLATELET LARGE PRESENT
[2019-05-02] MEDS ORDERED: LABETALOL HCL INJ 20 MG/4 ML DISP.SYRIN IV PRN (11:55)
--- NOTE | 2019-05-02 12:43 | RADIOLOGY REPORT (SQ) ---
EXAM DESCRIPTION: CHEST SINGLE VIEW COMPLETED DATE/TIME: 05/02/2019 12:17 pm REASON FOR STUDY: n/v, tachy COMPARISON: None. EXAM PARAMETERS: NUMBER OF VIEWS: One view. TECHNIQUE: Single frontal radiographic view of the chest acquired. RADIATION DOSE: NA LIMITATIONS: None. FINDINGS: LUNGS AND PLEURA: No opacities, masses or pneumothorax. No pleural effusion. MEDIASTINUM AND HILAR STRUCTURES: No masses. Contour normal. HEART AND VASCULAR STRUCTURES: Cardiomegaly. BONES: No acute findings. HARDWARE: None in the chest. OTHER: No other significant finding. IMPRESSION: No acute abnormality of the lungs in frontal projection. TECHNICAL DOCUMENTATION: JOB ID: [id number] [employer]- All Rights Reserved Reading location - IP/workstation name: [email or web address]
[2019-05-02] MEDS ORDERED: METOCLOPRAMIDE HCL 10 MG TABLET PO ONE (13:05)
--- NOTE | 2019-05-02 13:35 | RADIOLOGY REPORT (SQ) ---
EXAM DESCRIPTION: CT ABD/PELVIS WITH IV ONLY COMPLETED DATE/TIME: 05/02/2019 1:10 pm REASON FOR STUDY: abd pain, n/v, not able to tolerate PO COMPARISON: 10/08/2018 TECHNIQUE: CT scan of the abdomen and pelvis performed using helical scanning technique with dynamic intravenous contrast injection. No oral contrast. Images reviewed with lung, soft tissue, and bone windows. Reconstructed coronal and sagittal MPR images reviewed. Delayed images for evaluation of the urinary system also acquired. All images stored on PACS. All CT scanners at this facility use dose modulation, iterative reconstruction, and/or weight based d osing when appropriate to reduce radiation dose to as low as reasonably achievable (ALARA). [facility]: Dose Right [facility]: CareDose [facility]: Dose Right [facility]: Teradose 4D [facility]: [employer] [place] CONTRAST TYPE AND DOSE: contrast/concentration: Isovue 350.00 mg/ml; Total Contrast Delivered: 58.0 ml; Total Saline Delivered: 65.0 ml RENAL FUNCTION: GFR > 60. RADIATION DOSE: CT Rad equipment meets quality standard of care and radiation dose reduction techniq ues were employed. CTDIvol: 5.0 - 5.6 mGy. DLP: 822 mGy-cm.. LIMITATIONS: None. FINDINGS: LOWER CHEST: No significant findings. No nodules or infiltrates. LIVER: Normal size. No masses. No dilated ducts. SPLEEN: Normal size. No focal lesions. PANCREAS: No masses. No significant calcifications. No adjacent inflammation or peripancreatic fluid collections. Pancreatic duct not dilated. GALLBLADDER: No identified stones by CT criteria. No inflammatory changes to suggest cholecystitis. ADRENAL GLANDS: No significant masses or asymmetry. RIGHT KIDNEY AND URETER: No solid masses. No significant calcifications. Unchanged dilation of th e right renal pelvis without evidence of obstructing calculus. LEFT KIDNEY AND URETER: No solid masses. No significant calcifications. No hydronephrosis or hydr oureter. AORTA AND VESSELS: There is an unchanged 9 mm calcified aneurysm of a superior pole branch right esha l artery (series 601, image 32). Unchanged 1.4 cm aneurysm of the splenic artery or left gastric bra nch vessel, difficult to discern on this examination (series 601, image 31). No dissection. Renal ar teries, SMA, celiac without stenosis. Calcific atherosclerosis. RETROPERITONEUM: No retroperitoneal adenopathy, hemorrhage or masses. BOWEL AND PERITONEAL CAVITY: No masses or inflammatory changes. No free fluid or peritoneal masses. Diverticulosis without evidence of acute diverticulitis. APPENDIX: Not clearly visualized. PELVIS: No mass. No free fluid. Mildly distended urinary bladder. ABDOMINAL WALL: No masses. No hernias. BONES: No significant or acute findings. OTHER: No other significant finding. IMPRESSION: 1. No acute CT findings of the abdomen or pelvis to explain diffuse abdominal pain. 2. Unchanged dilation of the right renal pelvis without evidence of obstructing calculus. There may be a right ureteropelvic junction stricture. This may be further evaluated by nonemergent scintigrap hic nuclear renal scan if desired. 3. Mildly distended urinary bladder. Correlate for urinary retention. 4. Diverticulosis without evidence of acute diverticulitis. 5. 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 Unchanged 1.4 cm aneurysm of the splenic artery or left gastric branch vessel, diff icult to discern on this examination (series 601, image 31). TECHNICAL DOCUMENTATION: JOB ID: [id number] Quality ID # [id number]: Final reports with documentation of one or more dose reduction techniques (e.g., Au tomated exposure control, adjustment of the mA and/or kV according to patient size, use of iterative reconstruction technique) 2010 [employer]- All Rights Reserved Reading location - IP/workstation name: [email or web address]
[2019-05-02 15:03] LABS: APPEARANCE,URINE SLIGHTLY-CLOUDY; BILIRUBIN,URINE NEGATIVE (NEGATIVE); COLOR,URINE YELLOW; GLUCOSE, URINE 50 mg/dL (NEGATIVE); KETONES,URINE 20 mg/dL (NEGATIVE); PROTEIN,URINE >=500 mg/dL (NEGATIVE); UROBILINOGEN,URINE NEGATIVE mg/dL (<2.0)
[2019-05-02] MEDS ORDERED: ACETAMINOPHEN 325 MG TABLET PO ONE (16:18)
[2019-05-02 16:58] VITALS: BP 152/85
--- NOTE | 2019-05-02 17:22 | EKG REPORT ---
SEVERITY:- ABNORMAL ECG - SINUS TACHYCARDIA LEFT ATRIAL ABNORMALITY PROBABLE LEFT VENTRICULAR HYPERTROPHY BORDERLINE PROLONGED QT INTERVAL : Confirmed by: Shaheen Sunshine MD 02-May-2019 17:21:42
== END 2019-05-02 17:01 | disposition home or self-care (01) ==
LOC: ER 10:40
DX: R11.2 Nausea with vomiting, unspecified (principal); R10.9 Unspecified abdominal pain; R00.0 Tachycardia, unspecified; I10 Essential (primary) hypertension; Z91.040 Latex allergy status; I25.10 Atherosclerotic heart disease of native coronary artery without angina pectoris
CPT/HCPCS: 99285; 96361; 96374; 96375; 36415; 87040; 83690; 85025; 80053; 81001; 83605; 71045; 74177; 93005; 93010; A9270 ×2; J1170; J2550; J7030

== ENCOUNTER 2019-05-04 04:10 | Inpatient (IN) | payer MEDICARE, MEDICAID ==
[2019-05-04] MEDS ORDERED: NORMAL SALINE 1000 ML 1,000 ML IV ONE (04:45)
[2019-05-04] MEDS ORDERED: PROMETHAZINE HCL INJ 25 MG/1 ML VIAL IM ONE (04:45)
--- NOTE | 2019-05-04 04:46 | ER Document Report ---
ED General - General Stated Complaint: NAUSEA/VOMITING Time Seen by Provider: 05/04/19 04:37 Notes: Patient is a 58-year-old female that comes emergency department for chief complaint of persistent vomiting. She states she was seen here for vomiting, she was discharged with Reglan and potassium, she states she was not able to fill these and she has vomited persistently since her discharge. She states that she also has a bad headache. She states her belly hurts all over the place. She denies specific chest pain, unsure of fever, temperature was 100.2 by EMS. Patient has a past medical history that includes partial colectomy and bowel obstructions. She also has a history of hypertension, smoking, and brain aneurysm. Patient difficult to get a clear history from, she is very agitated and nauseated reportedly. She states she is visiting from out of town. TRAVEL OUTSIDE OF THE [place] IN LAST 30 DAYS: No - Related Data Allergies/Adverse Reactions: latex Allergy (Verified 05/02/19 11:56) Past Medical History - General Information source: Patient - Social History Smoking Status: Former Smoker Frequency of alcohol use: None Drug Abuse: None Family History: Reviewed & Not Pertinent - Past Medical History Cardiac Medical History: Reports: Hx Coronary Artery Disease, Hx Hypercholesterolemia, Hx Hypertension Pulmonary Medical History: Reports: Hx Asthma, Hx COPD Neurological Medical History: Reports: Hx Seizures - last 3yrs ago d/t aneurysm Renal/ Medical History: Denies: Hx Peritoneal Dialysis GI Medical History: Reports: Hx Gastritis Past Surgical History: Reports: Hx Abdominal Surgery - gastric bypass, Hx Section - x2, Hx Neurologic Surgery - brain aneurysm x 4 since 2011, Other - Partial colectomy Review of Systems - Review of Systems Constitutional: No symptoms reported EENT: No symptoms reported Cardiovascular: No symptoms reported Respiratory: No symptoms reported Gastrointestinal: See HPI Genitourinary: No symptoms reported Female Genitourinary: No symptoms reported Musculoskeletal: No symptoms reported Skin: No symptoms reported Hematologic/Lymphatic: No symptoms reported Neurological/Psychological: See HPI Physical Exam - Vital signs Vitals: Resp 22 H 05/04/19 04:13 - Notes Notes: GENERAL: Alert, somewhat anxious in appearance, disheveled, has vomit on her shirt. HEAD: Normocephalic, atraumatic. EYES: Pupils equal, round, and reactive to light. Extraocular movements intact. ENT: Oral mucosa very dry, tongue midline. Oropharynx unremarkable. Airway patent. NECK: Full range of motion. Supple. Trachea midline. LUNGS: Clear to auscultation bilaterally, no wheezes, rales, or rhonchi. No respiratory distress. HEART: Tachycardia with extrasystoles, no murmur noted ABDOMEN: Soft, non-tender. Non-distended. Bowel sounds present in all 4 quadrants. EXTREMITIES: Moves all 4 extremities spontaneously. No edema, normal radial and dorsalis pedis pulses bilaterally. No cyanosis. BACK: no cervical, thoracic, lumbar midline tenderness. No saddle anesthesia, normal distal neurovascular exam. Moves all extremities in full range of motion. NEUROLOGICAL: Alert and oriented x3. Normal speech. Cranial nerves II through XII grossly intact. PSYCH: Slightly anxious SKIN: Flushed Course - Re-evaluation Re-evalutation: Patient has vomit on her shirt, is hypertensive, tachycardic, and ill-appearing. However her abdomen is soft. She states she is does have a headache at this time. 05/04/19 05:50 Patient was reevaluated, she is relaxed, states feels improved, tachycardia is resolved, blood pressures in the 140s now, work-up still pending. Headache is resolved. CBC again shows leukocytosis. Chemistry shows hypokalemia at 2.5, hypomagnesemia, hypocalcemia. Lipase unremarkable. Troponin nonspecific. EKG nonspecific. Chest x-ray negative. CAT scan of the head negative for acute findings. Patient just had a CAT scan of the abdomen and her abdomen at this time is unremarkable. Patient denies withdrawing from any medications, she states that ever since she had a brain aneurysm when she gets "sick with a bug" sometimes she just cannot stop vomiting and occasionally she will be admitted to the hospital for this. Discussed with Dr. Holland. Because of her intractable vomiting, failure of treatment at home, and electrolyte derangements I will discuss with hospitalist. Discussed with Dr. Dodge, internal medicine, patient accepted to telemetry observation. Patient states appreciation and agreement. - Vital Signs Vital signs: Temp Pulse Resp BP Pulse Ox 98.9 F 16 143/84 H 98 05/04/19 07:36 05/04/19 06:51 05/04/19 06:51 05/04/19 06:51 - Laboratory Result Diagrams: 05/04/19 04:40 05/04/19 05:30 Laboratory results interpreted by me: 05/04/19 05/04/19 05/04/19 04:40 05:30 06:05 WBC 20.5 H RBC 5.94 H Hgb 15.7 H Hct 48.1 H MCH 26.5 L RDW 15.4 H Plt Count 130 L Seg Neuts % (Manual) 93 H Lymphocytes % (Manual) 4 L Abs Neuts (Manual) 19.1 H Potassium 2.5 L* Est GFR (MDRD) Non-Af 52 L Glucose 144 H Calcium 8.3 L Magnesium 1.3 L AST 42 H Urine Protein >=500 H Urine Glucose (UA) 150 H Urine Ketones 20 H Urine Blood SMALL H - EKG Interpretation by Me Additional EKG results interpreted by me: EKG shows sinus tachycardia at a rate of 111, QTC of 479, multiple PVCs, no T wave inversions or ST segment changes in consecutive leads. Discharge - Discharge Clinical Impression: Hypokalemia, Hypomagnesemia Intractable vomiting Qualifiers: Vomiting type: unspecified Nausea presence: with nausea Qualified Code(s): R11.2 - Nausea with vomiting, unspecified Headache Qualifiers: Headache type: unspecified Headache chronicity pattern: acute headache Intractability: not intractable Qualified Code(s): R51 - Headache Condition: Stable Disposition: ADMITTED OBSERVATION Admitting Provider: Echo (Hospitalist) Unit Admitted: Telemetry
[2019-05-04] MEDS ORDERED: MORPHINE SULFATE 10 MG/ML INJ IV ONE (04:55)
[2019-05-04 05:03] LABS: HEMATOCRIT 48.1 % (36.0-47.0); HEMOGLOBIN 15.7 g/dL (12.0-15.5); MEAN CORPUSCULAR HEMOGLOBIN 26.5 pg (27.0-33.4); MEAN CORPUSCULAR HGB CONC 32.7 g/dL (32.0-36.0); MEAN CORPUSCULAR VOLUME 81 fl (80-97); PLATELET COUNT 130 10^3/uL (150-450); RED BLOOD COUNT 5.94 10^6/uL (3.72-5.28); RED CELL DISTRIBUTION WIDTH 15.4 % (11.5-14.0); WHITE BLOOD COUNT 20.5 10^3/uL (4.0-10.5)
--- NOTE | 2019-05-04 05:14 | RADIOLOGY REPORT (SQ) ---
EXAM DESCRIPTION: XR CHEST 1 VIEW COMPLETED DATE/TME: 05/04/2019 04:42 CLINICAL HISTORY: 58 years Female, persistent vomiting, abdominal pain COMPARISON: 05/02/19 NUMBER OF VIEWS/TECHNIQUE: 1/AP FINDINGS: Increased lung volume, clear parenchyma, normal cardiac silhouette, and intact bony thorax.Upper abdominal clips. IMPRESSION: No acute cardiopulmonary findings.
[2019-05-04 05:26] LABS: ABSOLUTE LYMPHOCYTES# (MANUAL) 0.8 10^3/uL (0.5-4.7); ABSOLUTE MONOCYTES # (MANUAL) 0.6 10^3/uL (0.1-1.4); BASOPHILS % (MANUAL) 0 % (0-2); EOSINOPHILS % (MANUAL) 0 % (0-6); LYMPHOCYTES % (MANUAL) 4 % (13-45); MONOCYTES % (MANUAL) 3 % (3-13); SEGMENTED NEUTROPHILS % (MAN) 93 % (42-78); TOTAL CELLS COUNTED 100
[2019-05-04 05:28] LABS: ANISOCYTOSIS SLIGHT; BURR CELLS SLIGHT; OVALOCYTES SLIGHT; PLATELET COMMENT ADEQUATE; POIKILOCYTOSIS SLIGHT
--- NOTE | 2019-05-04 05:57 | RADIOLOGY REPORT (SQ) ---
CLINICAL HISTORY: headache, hypertension, vomiting, hx aneurism COMPARISON: None. 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 FINDINGS: There is no acute hemorrhage, mass effect or midline shift. There is encephalomalacia involving the posterior right temporal lobe. 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 There is a small focus of encephalomalacia in the right frontal lobe. 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 There is no hydrocephalus. There is no significant volume loss for age. There are mild patchy hypodensities within the periventricular and subcortical white matter, consistent with microangiopathic ischemic changes. The calvarium is intact. Orbits and globes are unremarkable. The paranasal sinuses are clear. Mastoid air cells are clear. IMPRESSION: No definite acute findings.
[2019-05-04 06:07] LABS: ALBUMIN 3.9 g/dL (3.5-5.0); ALKALINE PHOSPHATASE 79 U/L (38-126); ANION GAP 12 (5-19); ASPARTATE AMINO TRANSFERASE 42 U/L (14-36); BILIRUBIN,DIRECT 0.1 mg/dL (0.0-0.4); BILIRUBIN,TOTAL 0.6 mg/dL (0.2-1.3); BLOOD UREA NITROGEN 16 mg/dL (7-20); CALCIUM 8.3 mg/dL (8.4-10.2); CARBON DIOXIDE 25 mmol/L (22-30); CHLORIDE 102 mmol/L (98-107); GLUCOSE 144 mg/dL (75-110); TOTAL PROTEIN 6.6 g/dL (6.3-8.2)
[2019-05-04 06:12] LABS: POTASSIUM 2.5 mmol/L (3.6-5.0)
[2019-05-04 06:25] LABS: APPEARANCE,URINE SLIGHTLY-CLOUDY; BILIRUBIN,URINE NEGATIVE (NEGATIVE); COLOR,URINE YELLOW; GLUCOSE, URINE 150 mg/dL (NEGATIVE); KETONES,URINE 20 mg/dL (NEGATIVE); LEUKOCYTE ESTERASE,URINE NEGATIVE (NEGATIVE); NITRITE,URINE NEGATIVE (NEGATIVE); PROTEIN,URINE >=500 mg/dL (NEGATIVE); URINE SPECIFIC GRAVITY 1.016; UROBILINOGEN,URINE NEGATIVE mg/dL (<2.0)
[2019-05-04] MEDS: POTASSI CL 20 MEQ/50 ML RIDER 20 MEQ/50 ML RTUPB IV SCH ×2 (06:34→08:19)
[2019-05-04] MEDS: MAGNESIUM SULFATE/D5W 1 GM/100 ML RTUPB IV SCH ×2 (06:34→07:44)
--- NOTE | 2019-05-04 06:43 | EKG REPORT ---
SEVERITY:- ABNORMAL ECG - SINUS TACHYCARDIA MULTIPLE PREMATURE COMPLEXES, RUN OF SUPRAVEN ECTOPICS : Confirmed by: Shaheen Sunshine MD 04-May-2019 06:42:42
[2019-05-04 06:53] LABS: URINE AMPHETAMINES SCREEN NEGATIVE; URINE BARBITURATES SCREEN NEGATIVE; URINE BENZODIAZEPINES SCREEN NEGATIVE; URINE COCAINE SCREEN NEGATIVE; URINE MARIJUANA (THC) SCREEN NEGATIVE; URINE METHADONE SCREEN NEGATIVE; URINE PHENCYCLIDINE SCREEN NEGATIVE
[2019-05-04] MEDS ORDERED: ONDANSETRON HCL INJ/PF 4 MG/2 ML SDV IV PRN (07:47)
[2019-05-04] MEDS ORDERED: POTASSIUM CHLORIDE 10 MEQ CAPSULE.ER PO ONE ×2 (08:30→22:00)
[2019-05-04 08:32] LABS: A TYPE INFLUENZA AG NEGATIVE (NEGATIVE); B INFLUENZA AG NEGATIVE (NEGATIVE)
--- NOTE | 2019-05-04 10:54 | PDOC H&P ---
History of Present Illness Admission Date/PCP: 05/04/19 07:55 Patient complains of: Nausea vomiting, abdominal pain History of Present Illness: JER LACEY is a 58 year old female with a history of ruptured cerebral aneurysms s/p 3 stents and coiling [2009], right renal artery aneurysm, splenic artery aneurysm, seizures, hypertension, heart murmur and COPD, who presents with complaints of abdominal pain worse in the umbilical region but diffuse. This started 3 nights ago and has persisted. Describes as a crampy pain getting as bad as seven 9/10 sometimes. It is constant without much radiation. States occasionally aggravated by eating. Associated with nausea and several episodes of vomiting after eating. She has not been able to tolerate any diet. Also associated with several episodes of diarrhea for the past 3 days but now seems to be abating as she only had 3 episodes yesterday and none today so far. Patient came to the ED 2 days ago during which time, an abdominal CT with IV contrast showed no significant abnormalities to explain the pain though it also showed an enlarged right kidney without obstructing calculus. At that time ryley martinez was discharged home but is still not been able to tolerate p.o. Patient denies eating anything unusual or fast foods recently. Past Medical History Past Medical History: ruptured cerebral aneurysms s/p 3 stents and coiling [2009], right renal artery aneurysm, splenic artery aneurysm, seizures, hypertension, heart murmur and COPD Cardiac Medical History: Reports: Heart Murmur Pulmonary Medical History: Reports: Chronic Obstructive Pulmonary Disease (COPD) Neurological Medical History: Reports: Seizures - last 3yrs ago d/t aneurysm Infectious Medical History: Denies: Clostridium Difficile Past Surgical History Past Surgical History: Reports: Section - x2, Vascular Surgery, Other - Partial colectomy Social History Information Source: Patient Smoking Status: Former Smoker Frequency of Alcohol Use: None Hx Recreational Drug Use: No - Advance Directive Resuscitation Status: Full Code Family History Family History: Hypertension Parental Family History Reviewed: Yes Children Family History Reviewed: NA Sibling(s) Family History Reviewed.: Yes Medication/Allergy Home Medications: Ondansetron [Zofran Odt 4 mg Tablet] 1 - 2 tab PO Q4H PRN #15 tab.rapdis 10/08/18 Metoclopramide HCl [Reglan 10 mg Tablet] 5 mg PO Q6HP PRN #10 tablet 05/02/19 Potassium Chloride [Klor-Con M20] 20 meq PO DAILY 30 Days #30 tab.er.prt 05/02/19 Allergies/Adverse Reactions: latex Allergy (Verified 05/02/19 11:56) Review of Systems Constitutional: ABSENT: chills, fever(s) Eyes: ABSENT: visual disturbances Nose, Mouth, and Throat: ABSENT: headache(s) Cardiovascular: ABSENT: chest pain Respiratory: ABSENT: cough, dyspnea Gastrointestinal: PRESENT: abdominal pain, diarrhea, nausea, vomiting Genitourinary: ABSENT: dysuria Musculoskeletal: ABSENT: muscle weakness Integumentary: ABSENT: diaphoresis Neurological: ABSENT: confusion Endocrine: PRESENT: polyuria Hematologic/Lymphatic: ABSENT: easy bruising Physical Exam Vital Signs: Temp Pulse Resp BP Pulse Ox 98.9 F 15 141/92 H 100 05/04/19 07:36 05/04/19 08:51 05/04/19 08:51 05/04/19 08:51 Intake & Output 05/03/19 05/04/19 05/05/19 06:59 06:59 06:59 Intake Total 1000 279 Balance 1000 279 Weight 49 kg General appearance: PRESENT: no acute distress, cooperative Neck exam: ABSENT: JVD Respiratory exam: PRESENT: clear to auscultation natalie, symmetrical, unlabored. ABSENT: accessory muscle use, chest wall tenderness, tachypnea, wheezes Cardiovascular exam: PRESENT: RRR, +S1, +S2. ABSENT: clicks, gallop, irregular rhythm, tachycardia GI/Abdominal exam: PRESENT: normal bowel sounds, soft, tenderness - Diffuse but worst pain right upper quadrant and epigastrium. ABSENT: ascites, distended, firm, guarding, mass, rebound, rigid Extremities exam: ABSENT: pedal edema Musculoskeletal exam: PRESENT: ambulatory Neurological exam: PRESENT: alert, awake, oriented to person, oriented to place, oriented to time, oriented to situation Results Laboratory Results: 05/04/19 04:40 05/04/19 05:30 05/04/19 05/04/19 05/04/19 04:40 04:40 05:30 WBC 20.5 H RBC 5.94 H Hgb 15.7 H Hct 48.1 H MCV 81 MCH 26.5 L MCHC 32.7 RDW 15.4 H Plt Count 130 L Seg Neutrophils % Not Reportable Sodium Cancelled 139.1 Potassium Cancelled 2.5 L* Chloride Cancelled 102 Carbon Dioxide Cancelled 25 Anion Gap Cancelled 12 BUN Cancelled 16 Creatinine Cancelled 1.07 Est GFR ( Amer) Cancelled > 60 Est GFR (Non-Af Amer) Cancelled Glucose Cancelled 144 H Calcium Cancelled 8.3 L Magnesium Cancelled 1.3 L Total Bilirubin Cancelled 0.6 AST Cancelled 42 H Alkaline Phosphatase Cancelled 79 Total Protein Cancelled 6.6 Albumin Cancelled 3.9 Lipase Cancelled 106.6 Urine Color Urine Appearance Urine pH Ur Specific [place] Urine Protein Urine Glucose (UA) Urine Ketones Urine Blood Urine Nitrite Ur Leukocyte Esterase Urine WBC (Auto) Urine RBC (Auto) 05/04/19 06:05 WBC RBC Hgb Hct MCV MCH MCHC RDW Plt Count Seg Neutrophils % Sodium Potassium Chloride Carbon Dioxide Anion Gap BUN Creatinine Est GFR ( Amer) Est GFR (Non-Af Amer) Glucose Calcium Magnesium Total Bilirubin AST Alkaline Phosphatase Total Protein Albumin Lipase Urine Color YELLOW Urine Appearance SLIGHTLY-CLOUDY Urine pH 7.0 Ur Specific [place] 1.016 Urine Protein >=500 H Urine Glucose (UA) 150 H Urine Ketones 20 H Urine Blood SMALL H Urine Nitrite NEGATIVE Ur Leukocyte Esterase NEGATIVE Urine WBC (Auto) 2 Urine RBC (Auto) 3 05/04/19 05:30 Troponin I 0.093 Impressions: Chest X-Ray 05/04/19 04:42 IMPRESSION: No acute cardiopulmonary findings. Head CT 05/04/19 04:45 IMPRESSION: No definite acute findings. Assessment and Plan - Diagnosis (1) Hypokalemia due to excessive gastrointestinal loss of potassium Is this a current diagnosis for this admission?: Yes Plan: Aggressive repletion's with IV and oral potassium. Recheck BMP subsequently. (2) Abdominal pain Qualifiers: Abdominal location: generalized Qualified Code(s): R10.84 - Generalized abdominal pain Is this a current diagnosis for this admission?: Yes Plan: Associated with nausea vomiting and diarrhea. Likely secondary to gastroenteritis. Supportive care with IV fluid hydration with D5 normal saline as patient is not yet able to tolerate p.o., Antiemetics and pain control. Diarrhea seems to be resolving so no indication for C. difficile testing at this time. Abdominal CT with IV contrast done 2 days ago shows no evidence of acute pathology to explain patient's pain. Patient has right renal aneurysm which seems to be intact and stable on imaging. Head CT was done in the ER to evaluate nausea given history of cerebral aneurysm which showed no evidence of bleeding. (3) Dehydration Is this a current diagnosis for this admission?: Yes Plan: IV fluids (4) Leukocytosis Is this a current diagnosis for this admission?: Yes Plan: Likely from gastroenteritis but exaggerated as patient seems to be hemoconc entrated due to significant dehydration from excessive GI losses. I expected to resolve with IV fluids. - Time Time Spent with patient: 35 or more minutes
[2019-05-04] MEDS: DEXTROSE 5%-NORMAL SALINE 1,000 ML IV PRN ×2 (11:06→19:00)
[2019-05-04] MEDS: HEPARIN SOD (PORCINE) 5,000 UNIT/ML 1 ML VIAL SUBCUT SCH ×2 (13:08→21:34)
[2019-05-04 16:00] LABS: ANION GAP 9 (5-19); BLOOD UREA NITROGEN 15 mg/dL (7-20); CARBON DIOXIDE 22 mmol/L (22-30); CHLORIDE 108 mmol/L (98-107); GLUCOSE 112 mg/dL (75-110)
[2019-05-04] MEDS: ACETAMINOPHEN 325 MG TABLET PO PRN (16:51)
[2019-05-04 17:12] LABS: POTASSIUM 3.6 mmol/L (3.6-5.0)
[2019-05-04] MEDS: ONDANSETRON HCL INJ/PF 4 MG/2 ML SDV IV PRN (21:39)
[2019-05-05] MEDS: DEXTROSE 5%-NORMAL SALINE 1,000 ML IV PRN ×4 (03:26→18:52)
[2019-05-05] MEDS: HEPARIN SOD (PORCINE) 5,000 UNIT/ML 1 ML VIAL SUBCUT SCH ×3 (05:19→22:29)
[2019-05-05] MEDS: ONDANSETRON HCL INJ/PF 4 MG/2 ML SDV IV PRN ×3 (06:48→18:52)
[2019-05-05 06:50] LABS: ANION GAP 5 (5-19); BLOOD UREA NITROGEN 14 mg/dL (7-20); CALCIUM 8.2 mg/dL (8.4-10.2); CARBON DIOXIDE 23 mmol/L (22-30); CHLORIDE 112 mmol/L (98-107); GLUCOSE 106 mg/dL (75-110); POTASSIUM 3.7 mmol/L (3.6-5.0)
[2019-05-05] MEDS ORDERED: PROMETHAZINE HCL INJ 25 MG/1 ML VIAL ONE (07:25)
[2019-05-05] MEDS ORDERED: METOCLOPRAMIDE HCL INJ/PF 10 MG/2 ML SDV IV PRN (08:18)
[2019-05-05] MEDS ORDERED: LORAZEPAM INJ 2 MG/1 ML VIAL IV PRN (08:41)
[2019-05-05] MEDS ORDERED: LORAZEPAM INJ 2 MG/1 ML VIAL ONE (08:43)
[2019-05-05] MEDS ORDERED: MORPHINE SULFATE 10 MG/ML INJ ONE (08:43)
--- NOTE | 2019-05-05 08:57 | PDOC PROGRESS REPORT ---
Subjective Progress Note for:: 05/05/19 Subjective:: Patient is having intractable nausea with vomiting. She complains of severe pain her blood pressure was 220/140. Reason For Visit: HYPOKALEMIA, VOMITING Physical Exam Vital Signs: Temp Pulse Resp BP Pulse Ox 98.0 F 116 H 20 220/140 H 99 05/05/19 07:49 05/05/19 07:49 05/05/19 07:49 05/05/19 07:49 05/05/19 07:49 Intake & Output 05/04/19 05/05/19 05/06/19 06:59 06:59 06:59 Intake Total 1000 3587 Balance 1000 3587 Weight 49 kg 50.3 kg General appearance: PRESENT: cooperative, severe distress, well-developed Head exam: PRESENT: atraumatic, normocephalic Ear exam: PRESENT: normal external ear exam. ABSENT: bleeding, drainage Respiratory exam: PRESENT: clear to auscultation natalie, symmetrical, tachypnea, unlabored. ABSENT: accessory muscle use, rales, rhonchi, wheezes Cardiovascular exam: PRESENT: +S1, +S2, tachycardia, other - Very pronounced heartbeat GI/Abdominal exam: PRESENT: normal bowel sounds, soft, tenderness - Gastrin. ABSENT: distended Rectal exam: PRESENT: deferred Extremities exam: ABSENT: pedal edema Musculoskeletal exam: PRESENT: normal inspection Neurological exam: PRESENT: alert, awake, oriented to person, oriented to place, oriented to time, oriented to situation, CN II-XII grossly intact Psychiatric exam: PRESENT: anxious Focused psych exam: ABSENT: delusional, restlessness Results Laboratory Results: 05/05/19 06:13 05/05/19 06:13 05/04/19 05/05/19 05/05/19 15:16 06:13 06:13 WBC Cancelled RBC Cancelled Hgb Cancelled Hct Cancelled MCV Cancelled MCH Cancelled MCHC Cancelled RDW Cancelled Plt Count Cancelled Seg Neutrophils % Cancelled Sodium 139.4 139.7 Potassium 3.6 D 3.7 Chloride 108 H 112 H Carbon Dioxide 22 23 Anion Gap 9 5 BUN 15 14 Creatinine 0.88 0.81 Est GFR ( Amer) > 60 > 60 Glucose 112 H 106 Calcium 8.0 L 8.2 L Magnesium 2.4 H D 05/04/19 05/04/19 05:30 15:16 Troponin I 0.093 0.064 Impressions: Chest X-Ray 05/04/19 04:42 IMPRESSION: No acute cardiopulmonary findings. Head CT 05/04/19 04:45 IMPRESSION: No definite acute findings. Assessment and Plan - Diagnosis (1) Hypokalemia due to excessive gastrointestinal loss of potassium Is this a current diagnosis for this admission?: Yes Plan: 05/05/2019-with supplementation her serum potassium is now normal. We will continue to monitor electrolytes. (2) Abdominal pain Qualifiers: Abdominal location: generalized Qualified Code(s): R10.84 - Generalized abdominal pain Is this a current diagnosis for this admission?: Yes Plan: 05/05/2019-likely secondary to her gastroenteritis. Review of the recent CT scan of the abdomen as well as the acute abdominal series shows no evidence of outlet obstruction. We will continue pain medications and anti-emetics. (3) Dehydration Is this a current diagnosis for this admission?: Yes Plan: 05/05/2019-the patient continues on D5 normal saline. Serum BUN and creatinine have been normal. We will continue to monitor renal function as well as intake and output. Unfortunately she has episodes of incontinence and is impossible to have accurate intake and output and I do not want to insert a Magana catheter just to collect those numbers. (4) Leukocytosis Qualifiers: Leukocytosis type: unspecified Qualified Code(s): D72.829 - Elevated white blood cell count, unspecified Is this a current diagnosis for this admission?: Yes Plan: 05/05/2019-the white blood cell count has improved to 15,000 today. There is still left shift with over 90% neutrophils. We will continue to monitor the white blood cell count. As there is no obvious source of a bacterial infection we will keep her off of antibiotics at this time. (5) Hypertensive emergency without congestive heart failure Is this a current diagnosis for this admission?: Yes Plan: 05/05/2019-earlier today her blood pressure spiked. Initially it was thought that it was due to the abdominal pain and distress of nausea and vomiting. After IV pain medication and IV benzodiazepine therapy her pressure remained high. We initiated intravenous hydralazine. As she has persistent nausea and vomiting oral medications are ineffective at this time. Because at one time her blood pressure was 220/140 I consulted the supervisor home restoration service. He added IV Lopressor and the combination seems to be holding her pressure down. Once she can take oral medications we can start her regimen for good blood pressure control. At this time it is very difficult to know why the blood pressure spike other than the factors outlined above. (6) Hypomagnesemia Is this a current diagnosis for this admission?: Yes Plan: 05/05/2019-with supplementation the serum magnesium level is now normal. Continue to monitor. (7) Intractable vomiting Qualifiers: Vomiting type: unspecified Nausea presence: with nausea Qualified Code(s): R11.2 - Nausea with vomiting, unspecified Is this a current diagnosis for this admission?: Yes Plan: 05/05/2019-the patient is still having vomiting. We have currently tried Phenergan, Zofran and metoclopramide. If she continues to vomit we will consider other medications such as Compazine. - Time Time Spent with patient: 15-24 minutes Medications reviewed and adjusted accordingly: Yes Anticipated discharge: Home
[2019-05-05] MEDS: HYDRALAZINE HCL INJ/PF 20 MG/1 ML SDV IV PRN ×2 (09:45→09:56)
[2019-05-05 10:13] LABS: HEMATOCRIT 42.3 % (36.0-47.0); LYMPHOCYTES % (AUTO) 11.1 % (13-45); MEAN CORPUSCULAR HEMOGLOBIN 26.5 pg (27.0-33.4); MEAN CORPUSCULAR HGB CONC 33.1 g/dL (32.0-36.0); MEAN CORPUSCULAR VOLUME 80 fl (80-97); RED BLOOD COUNT 5.28 10^6/uL (3.72-5.28); RED CELL DISTRIBUTION WIDTH 15.5 % (11.5-14.0); SEGMENTED NEUTROPHILS % (AUTO) 81.2 % (42-78); WHITE BLOOD COUNT 15.3 10^3/uL (4.0-10.5)
[2019-05-05 10:14] LABS: ABSOLUTE BASOPHILS # (AUTO) 0.2 10^3/uL (0.0-0.2); ABSOLUTE EOSINOPHILS # (AUTO) 0.2 10^3/uL (0.0-0.6); ABSOLUTE LYMPHOCYTES (AUTO) 1.7 10^3/uL (0.5-4.7); ABSOLUTE MONOCYTES (AUTO) 0.9 10^3/uL (0.1-1.4); ABSOLUTE NEUT (AUTO) 12.4 10^3/uL (1.7-8.2); EOSINOPHILS % (AUTO) 1.1 % (0-6); MONOCYTES % (AUTO) 5.6 % (3-13); TOTAL CELLS COUNTED % (AUTO) 100 %
[2019-05-05 10:16] LABS: PLATELET COUNT 61 10^3/uL (150-450)
[2019-05-05] MEDS ORDERED: HYDRALAZINE HCL INJ/PF 20 MG/1 ML SDV IV ONE ×2 (10:30→15:00)
[2019-05-05] MEDS ORDERED: HYDRALAZINE HCL INJ/PF 20 MG/1 ML SDV IV PRN (10:48)
[2019-05-05] MEDS ORDERED: METOPROLOL SUCCINATE 25 MG TAB.SR.24H PO SCH (11:00)
[2019-05-05] MEDS ORDERED: LISINOPRIL 5 MG TABLET PO SCH (11:00)
[2019-05-05] MEDS ORDERED: LABETALOL HCL INJ 20 MG/4 ML DISP.SYRIN IV ONE (14:14)
[2019-05-05] MEDS ORDERED: LABETALOL HCL INJ 20 MG/4 ML DISP.SYRIN IV PRN (15:02)
--- NOTE | 2019-05-05 15:31 | PDOC CRITICAL CARE PROG REPORT ---
General Date:: 05/05/19 Hospital Day:: 2 Events in the past 12 to 24 Hours:: Uncontrolled BP and abdominal pain. N/V. Review of systems relevant to events:: GI Reason for ICU Addmission:: Assess need for Cardene drip. - Medications: Medications reviewed and adjusted accordingly: Yes Vasopressors:: None Sedation:: None Physical Exam Vital Signs: Temp Pulse Resp BP Pulse Ox 99.8 F 114 H 16 174/94 H 100 05/05/19 11:51 05/05/19 11:51 05/05/19 11:51 05/05/19 14:49 05/05/19 11:51 Intake & Output 05/04/19 05/05/19 05/06/19 06:59 06:59 06:59 Intake Total 1000 3587 1000 Balance 1000 3587 1000 Weight 49 kg 50.3 kg Weight/Height Weight 50.3 kg Height 4 ft 7 in General appearance: PRESENT: no acute distress, mild distress, well-developed, well-nourished Head exam: PRESENT: atraumatic, normocephalic Eye exam: PRESENT: conjunctiva pink, EOMI, PERRLA. ABSENT: scleral icterus Ear exam: PRESENT: normal external ear exam Mouth exam: PRESENT: dry mucosa Respiratory exam: PRESENT: clear to auscultation natalie. ABSENT: rales, rhonchi, wheezes Cardiovascular exam: PRESENT: tachycardia GI/Abdominal exam: PRESENT: soft, tenderness - Upper abdomen > lower Rectal exam: PRESENT: deferred Extremities exam: PRESENT: full ROM. ABSENT: calf tenderness, clubbing, pedal edema Musculoskeletal exam: PRESENT: normal inspection Neurological exam: PRESENT: alert, awake, oriented to person, oriented to place, oriented to time, oriented to situation, CN II-XII grossly intact. ABSENT: motor sensory deficit Skin exam: PRESENT: dry, intact, warm. ABSENT: cyanosis, rash Laboratory/Radiographs Laboratory Results: 05/05/19 08:35 05/05/19 06:13 05/04/19 05/05/19 05/05/19 15:16 06:13 06:13 WBC Cancelled RBC Cancelled Hgb Cancelled Hct Cancelled MCV Cancelled MCH Cancelled MCHC Cancelled RDW Cancelled Plt Count Cancelled Seg Neutrophils % Cancelled Sodium 139.4 139.7 Potassium 3.6 D 3.7 Chloride 108 H 112 H Carbon Dioxide 22 23 Anion Gap 9 5 BUN 15 14 Creatinine 0.88 0.81 Est GFR ( Amer) > 60 > 60 Glucose 112 H 106 Calcium 8.0 L 8.2 L Magnesium 2.4 H D 05/05/19 08:35 WBC 15.3 H RBC 5.28 Hgb 14.0 Hct 42.3 MCV 80 MCH 26.5 L MCHC 33.1 RDW 15.5 H Plt Count 61 L Seg Neutrophils % 81.2 H Sodium Potassium Chloride Carbon Dioxide Anion Gap BUN Creatinine Est GFR ( Amer) Glucose Calcium Magnesium 05/04/19 05/04/19 05:30 15:16 Troponin I 0.093 0.064 Impressions: Chest X-Ray 05/04/19 04:42 IMPRESSION: No acute cardiopulmonary findings. Head CT 05/04/19 04:45 IMPRESSION: No definite acute findings. EKG: Sinus tachycardia All labs, radiographs, diagnostic studies and EKGs were personally reviewed: Yes In addition, reports of radiographic and diagnostic studies were read: Yes Assessment and Plan - Diagnosis (1) Hypertension Qualifiers: Hypertension type: essential hypertension Qualified Code(s): I10 - Essential (primary) hypertension Is this a current diagnosis for this admission?: Yes Plan: This hypertension of up to 240/120 is likely being driven at partially by pain, inability to tolerate PO meds and dehydration causing a clamping effect. With he HR 110 she would benefit from a beta blockade such as labetolol with an alpha and beta effect. Avoid PO for now. If this does not work we will certainly consider ICU transfer but first dose of labetolol brought BP to 170/94. (2) Abdominal pain Qualifiers: Abdominal location: generalized Qualified Code(s): R10.84 - Generalized abdominal pain Is this a current diagnosis for this admission?: Yes Plan: She is a set up for a SBO but no evidence on CT. She has some bile in vomit so a complete gastric outlet obstruction is unlikely. The presence of much undigested food makes a partial GOO more likely. Protonix and carafate ordered. Continue pain meds. (3) Dehydration Is this a current diagnosis for this admission?: Yes Plan: Increase IVF (4) Intractable vomiting Qualifiers: Vomiting type: unspecified Nausea presence: with nausea Qualified Code(s): R11.2 - Nausea with vomiting, unspecified Is this a current diagnosis for this admission?: Yes Plan: Consider higher dose of zofran. Stop reglan for now. Plan Summary: As above. No ICU for now. Critical Time Critical Time (minutes): 40 Level of Care: TELE Anticipated discharge: Home Within: Other -: 1. The care of a critical patient is a dynamic process. This note is a patient services representative synopsis but static in nature. The timeframe for treatments given in order is not necessary the actual time these treatments may have been done. 2. This patient requires critical care secondary to ongoing requirements for therapy not offered or safe outside the critical care environment. Transfer to a lower level of care with altered life or limb morbidity and mortality. 3. Multidisciplinary rounds completed. 4. ABCDE bundle addressed.
[2019-05-05] MEDS: PANTOPRAZOLE SODIUM 40 MG VIAL IV SCH (16:12)
[2019-05-05] MEDS: SUCRALFATE 1 GM TABLET PO SCH ×3 (16:12→23:08)
[2019-05-05] MEDS: MORPHINE SULFATE 10 MG/ML INJ IV PRN ×2 (18:52→22:33)
[2019-05-05] MEDS: LORAZEPAM INJ 2 MG/1 ML VIAL IV PRN (19:42)
[2019-05-06] MEDS: DEXTROSE 5%-NORMAL SALINE 1,000 ML IV PRN ×4 (01:41→23:16)
[2019-05-06] MEDS: ONDANSETRON HCL INJ/PF 4 MG/2 ML SDV IV PRN ×4 (01:45→22:28)
[2019-05-06] MEDS: DIPHENHYDRAMINE HCL 50 MG/ML VIAL IV PRN ×3 (02:25→22:28)
[2019-05-06] MEDS: HEPARIN SOD (PORCINE) 5,000 UNIT/ML 1 ML VIAL SUBCUT SCH ×3 (06:15→22:29)
[2019-05-06] MEDS: SUCRALFATE 1 GM TABLET PO SCH ×4 (06:25→23:50)
[2019-05-06] MEDS: PANTOPRAZOLE SODIUM 40 MG VIAL IV SCH (09:15)
[2019-05-06] MEDS: MORPHINE SULFATE 10 MG/ML INJ IV PRN ×3 (09:16→20:08)
[2019-05-06] MEDS: LORAZEPAM INJ 2 MG/1 ML VIAL IV PRN ×2 (11:01→20:08)
[2019-05-06] MEDS ORDERED: NICOTINE 21 MG/24 HR PATCH.TD24 TD SCH (12:00)
--- NOTE | 2019-05-06 18:18 | PDOC DISCHARGE SUMMARY ---
Impression - Admit/DC Date/PCP Admission Date/Primary Care Provider: 05/05/19 08:46 Discharge Date: 05/07/19 - Discharge Diagnosis (1) Gastroenteritis presumed infectious Is this a current diagnosis for this admission?: Yes (2) Hypokalemia due to excessive gastrointestinal loss of potassium Is this a current diagnosis for this admission?: Yes (3) Abdominal pain Is this a current diagnosis for this admission?: Yes (4) Dehydration Is this a current diagnosis for this admission?: Yes (5) Leukocytosis Is this a current diagnosis for this admission?: Yes (6) Hypertensive emergency without congestive heart failure Is this a current diagnosis for this admission?: Yes (7) Hypomagnesemia Is this a current diagnosis for this admission?: Yes (8) Intractable vomiting Is this a current diagnosis for this admission?: Yes - Additional Information Resuscitation Status: Full Code Discharge Diet: As Tolerated Discharge Activity: Activity As Tolerated Referrals: PRIMARY,CARE PROVIDER [Other] (PATIENT IS FROM OUT OF TOWN. SHE WILL FOLLOW UP WITH PCP UPON RETURNING HOME.) Prescriptions: Lorazepam [Ativan 0.5 mg Tablet] 0.5 mg PO Q12 5 Days #8 tab Sucralfate [Carafate 1 gm Tablet] 1 gm PO ACHS 14 Days #56 tablet Hydrocodone/Acetaminophen [[place] 5-325 mg Tablet] 1 tab PO Q8 PRN 5 Days #8 tablet PRN Reason: For Pain Pantoprazole Sodium [Protonix [address] Tablet] 40 mg PO QAM 14 Days #14 tablet.dr Home Medications: Acetaminophen [Tylenol 325 mg Tablet] 650 mg PO Q4HP PRN tablet 05/06/19 Hydrocodone/Acetaminophen [[place] 5-325 mg Tablet] 1 tab PO Q8 PRN 5 Days #8 tablet 05/06/19 Lorazepam [Ativan 0.5 mg Tablet] 0.5 mg PO Q12 5 Days #8 tab 05/06/19 Nicotine [Nicoderm 21 mg/24 Hr Transderm Patch] 1 each TD DAILY patch.td24 05/06/19 Pantoprazole Sodium [Protonix [address] Tablet] 40 mg PO QAM 14 Days #14 tablet.dr 05/06/19 Sucralfate [Carafate 1 gm Tablet] 1 gm PO ACHS 14 Days #56 tablet 05/06/19 History of Present Illiness History of Present Illness: JER LACEY is a 58 year old female had presented to the emergency room 2 days prior to admission for several days of abdominal pain with nausea and vomiting. Diagnostic imaging did not reveal any acute abnormalities. She was referred to the hospital service for admission for abdominal pain with intractable nausea and vomiting. During the evaluation severe hypokalemia and hypomagnesemia were noted and these are most likely secondary to GI losses. Hospital Course Hospital Course: For the first 2 days the patient had severe pain and intractable nausea and vomiting. Multiple antiemetics were tried. On the second day her blood pressure spiked. This created a hypertensive emergency with systolic blood pressure of 220 and diastolic above 140. She did not respond to multiple doses of antihypertensives and I did consult the geophysical prospecting permit agent. Dr. Metcalf made some suggestions including IV labetalol and Carafate in addition to Protonix. This morning the patient was feeling much better. She had not had any doses of antihypertensives and she had a normal blood pressure. This evening she is sitting in her bed. She is eating dinner without any symptoms. Physical Exam Vital Signs: Temp Pulse Resp BP Pulse Ox 98.5 F 98 17 129/77 H 98 05/06/19 15:53 05/06/19 15:53 05/06/19 15:53 05/06/19 15:53 05/06/19 15:53 Intake & Output 05/05/19 05/06/19 05/07/19 06:59 06:59 06:59 Intake Total 3587 3818 3314 Balance 3587 3818 3314 Weight 50.3 kg 51.4 kg General appearance: PRESENT: no acute distress, cooperative, well-developed Head exam: PRESENT: atraumatic, normocephalic Eye exam: PRESENT: conjunctiva pink. ABSENT: scleral icterus Ear exam: PRESENT: normal external ear exam. ABSENT: bleeding, drainage Mouth exam: PRESENT: moist, tongue midline Respiratory exam: PRESENT: clear to auscultation natalie, symmetrical, unlabored. ABSENT: rales, rhonchi, tachypnea, wheezes Cardiovascular exam: PRESENT: RRR, +S1, +S2 GI/Abdominal exam: PRESENT: normal bowel sounds, soft. ABSENT: distended, tenderness Rectal exam: PRESENT: deferred Extremities exam: PRESENT: full ROM. ABSENT: joint swelling, pedal edema Musculoskeletal exam: PRESENT: ambulatory, normal inspection Neurological exam: PRESENT: alert, awake, oriented to person, oriented to place, oriented to time, oriented to situation, CN II-XII grossly intact Psychiatric exam: PRESENT: appropriate affect, normal mood. ABSENT: agitated, anxious Focused psych exam: ABSENT: delusional, restlessness Skin exam: PRESENT: dry, normal color, warm. ABSENT: rash Results Laboratory Results: WBC 15.3 10^3/uL (4.0-10.5) H 05/05/19 08:35 RBC 5.28 10^6/uL (3.72-5.28) 05/05/19 08:35 Hgb 14.0 g/dL (12.0-15.5) 05/05/19 08:35 Hct 42.3 % (36.0-47.0) 05/05/19 08:35 MCV 80 fl (80-97) 05/05/19 08:35 MCH 26.5 pg (27.0-33.4) L 05/05/19 08:35 MCHC 33.1 g/dL (32.0-36.0) 05/05/19 08:35 RDW 15.5 % (11.5-14.0) H 05/05/19 08:35 Plt Count 61 10^3/uL (150-450) L 05/05/19 08:35 Lymph % (Auto) 11.1 % (13-45) L 05/05/19 08:35 [place] % (Auto) 5.6 % (3-13) 05/05/19 08:35 Eos % (Auto) 1.1 % (0-6) 05/05/19 08:35 Baso % (Auto) 1.0 % (0-2) 05/05/19 08:35 Absolute Neuts (auto) 12.4 10^3/uL (1.7-8.2) H 05/05/19 08:35 Absolute Lymphs (auto) 1.7 10^3/uL (0.5-4.7) 05/05/19 08:35 Absolute Monos (auto) 0.9 10^3/uL (0.1-1.4) 05/05/19 08:35 Absolute Eos (auto) 0.2 10^3/uL (0.0-0.6) 05/05/19 08:35 Absolute Basos (auto) 0.2 10^3/uL (0.0-0.2) 05/05/19 08:35 Total Counted 100 05/04/19 04:40 Seg Neutrophils % 81.2 % (42-78) H 05/05/19 08:35 Seg Neuts % (Manual) 93 % (42-78) H 05/04/19 04:40 Lymphocytes % (Manual) 4 % (13-45) L 05/04/19 04:40 Monocytes % (Manual) 3 % (3-13) 05/04/19 04:40 Eosinophils % (Manual) 0 % (0-6) 05/04/19 04:40 Basophils % (Manual) 0 % (0-2) 05/04/19 04:40 Abs Neuts (Manual) 19.1 10^3/uL (1.7-8.2) H 05/04/19 04:40 Abs Lymphs (Manual) 0.8 10^3/uL (0.5-4.7) 05/04/19 04:40 Abs Monocytes (Manual) 0.6 10^3/uL (0.1-1.4) 05/04/19 04:40 Absolute Eos (Manual) 0.0 10^3/uL (0.0-0.6) 05/04/19 04:40 Abs Basophils (Manual) 0.0 10^3/uL (0.0-0.2) 05/04/19 04:40 Platelet Estimate Cancelled 05/05/19 06:13 Platelet Comment ADEQUATE 05/04/19 04:40 Poikilocytosis SLIGHT 05/04/19 04:40 Anisocytosis SLIGHT 05/04/19 04:40 Ovalocytes SLIGHT 05/04/19 04:40 [place] Cells SLIGHT 05/04/19 04:40 Sodium 139.7 mmol/L (137-145) 05/05/19 06:13 Potassium 3.7 mmol/L (3.6-5.0) 05/05/19 06:13 Chloride 112 mmol/L (98-107) H 05/05/19 06:13 Carbon Dioxide 23 mmol/L (22-30) 05/05/19 06:13 Anion Gap 5 (5-19) 05/05/19 06:13 BUN 14 mg/dL (7-20) 05/05/19 06:13 Creatinine 0.81 mg/dL (0.52-1.25) 05/05/19 06:13 Est GFR ( Amer) > 60 (>60) 05/05/19 06:13 Est GFR (Non-Af Amer) Cancelled 05/04/19 04:40 Est GFR (MDRD) Non-Af > 60 (>60) 05/05/19 06:13 Glucose 106 mg/dL (75-110) 05/05/19 06:13 Calcium 8.2 mg/dL (8.4-10.2) L 05/05/19 06:13 Magnesium 2.4 mg/dL (1.6-2.3) H D 05/04/19 15:16 Total Bilirubin 0.6 mg/dL (0.2-1.3) 05/04/19 05:30 Direct Bilirubin 0.1 mg/dL (0.0-0.4) 05/04/19 05:30 Neonat Total Bilirubin Not Reportable 05/04/19 05:30 Neonat Direct Bilirubin Not Reportable 05/04/19 05:30 Neonat Indirect Bili Not Reportable 05/04/19 05:30 AST 42 U/L (14-36) H 05/04/19 05:30 ALT 36 U/L (<35) 05/04/19 05:30 Alkaline Phosphatase 79 U/L (38-126) 05/04/19 05:30 Troponin I 0.064 ng/mL 05/04/19 15:16 Total Protein 6.6 g/dL (6.3-8.2) 05/04/19 05:30 Albumin 3.9 g/dL (3.5-5.0) 05/04/19 05:30 Lipase 106.6 U/L (23-300) 05/04/19 05:30 EGFR Cancelled 05/04/19 04:40 Urine Color YELLOW 05/04/19 06:05 Urine Appearance SLIGHTLY-CLOUDY 05/04/19 06:05 Urine pH 7.0 (5.0-9.0) 05/04/19 06:05 Ur Specific [place] 1.016 05/04/19 06:05 Urine Protein >=500 mg/dL (NEGATIVE) H 05/04/19 06:05 Urine Glucose (UA) 150 mg/dL (NEGATIVE) H 05/04/19 06:05 Urine Ketones 20 mg/dL (NEGATIVE) H 05/04/19 06:05 Urine Blood SMALL (NEGATIVE) H 05/04/19 06:05 Urine Nitrite NEGATIVE (NEGATIVE) 05/04/19 06:05 Urine Bilirubin NEGATIVE (NEGATIVE) 05/04/19 06:05 Urine Urobilinogen NEGATIVE mg/dL (<2.0) 05/04/19 06:05 Ur Leukocyte Esterase NEGATIVE (NEGATIVE) 05/04/19 06:05 Urine WBC (Auto) 2 /HPF 05/04/19 06:05 Urine RBC (Auto) 3 /HPF 05/04/19 06:05 U Hyaline Cast (Auto) 1 /LPF 05/04/19 06:05 Squamous Epi Cells Auto 5 /HPF 05/04/19 06:05 Urine Mucus (Auto) RARE /LPF 05/04/19 06:05 Urine Ascorbic Acid NEGATIVE (NEGATIVE) 05/04/19 06:05 Urine Opiates Screen UNCONFIRMED POSITIVE 05/04/19 06:05 Urine Methadone Screen NEGATIVE 05/04/19 06:05 Ur Barbiturates Screen NEGATIVE 05/04/19 06:05 Ur Phencyclidine Scrn NEGATIVE 05/04/19 06:05 Ur Amphetamines Screen NEGATIVE 05/04/19 06:05 U Benzodiazepines Scrn NEGATIVE 05/04/19 06:05 Urine Cocaine Screen NEGATIVE 05/04/19 06:05 U Marijuana (THC) Screen NEGATIVE 05/04/19 06:05 Influenza A (Rapid) NEGATIVE (NEGATIVE) 05/04/19 08:01 Influenza B (Rapid) NEGATIVE (NEGATIVE) 05/04/19 08:01 Slides for Path Review Cancelled 05/05/19 06:13 05/04/19 05/04/19 05:30 15:16 Troponin I 0.093 0.064 Impressions: Chest X-Ray 05/04/19 04:42 IMPRESSION: No acute cardiopulmonary findings. Head CT 05/04/19 04:45 IMPRESSION: No definite acute findings. Plan Health Concerns: The hypertensive emergency equals secondary to the pain with intractable nausea and vomiting. The gastroenteritis was most likely viral. Plan of Treatment: Because she responded so well we will continue the Carafate and Protonix for 2 weeks. I will defer to the patient's primary care provider with regard to continuing these treatments. I have given the patient a prescription for 8 [place] 5/325 mg tablets and 8 Lorazepam 0.5 mg tablets for any pain and anxiety through the holiday weekend. Goals: Complete resolution of symptoms Time Spent: Greater than 30 Minutes Stroke Is this a Stroke Patient?: No Acute Heart Failure - Is this a Heart Failure Patient?: No
[2019-05-06] MEDS: ACETAMINOPHEN 325 MG TABLET PO PRN (23:19)
[2019-05-07] MEDS: MORPHINE SULFATE 10 MG/ML INJ IV PRN (03:35)
[2019-05-07] MEDS: LORAZEPAM INJ 2 MG/1 ML VIAL IV PRN (03:35)
[2019-05-07 04:54] VITALS: BP 139/86
[2019-05-07] MEDS: DEXTROSE 5%-NORMAL SALINE 1,000 ML IV PRN (05:51)
[2019-05-07] MEDS: ONDANSETRON HCL INJ/PF 4 MG/2 ML SDV IV PRN (05:53)
[2019-05-07] MEDS: SUCRALFATE 1 GM TABLET PO SCH (05:53)
[2019-05-07] MEDS: DIPHENHYDRAMINE HCL 50 MG/ML VIAL IV PRN (05:53)
[2019-05-07] MEDS: HEPARIN SOD (PORCINE) 5,000 UNIT/ML 1 ML VIAL SUBCUT SCH (05:56)
== END 2019-05-07 06:41 | disposition left against medical advice (07) | DRG 392 ==
LOC: ER 04:10 → EH 07:55 → 5 09:39 → OBSVTOIN 05-05 08:46
PROVIDERS: ADMIT Internal Medicine; ATTEND Internal Medicine
DX: A09 Infectious gastroenteritis and colitis, unspecified (principal); I16.1 Hypertensive emergency; E87.6 Hypokalemia; E86.0 Dehydration; E83.42 Hypomagnesemia; I10 Essential (primary) hypertension; J44.9 Chronic obstructive pulmonary disease, unspecified; I25.10 Atherosclerotic heart disease of native coronary artery without angina pectoris; E78.00 Pure hypercholesterolemia, unspecified; I49.3 Ventricular premature depolarization; Z79.899 Other long term (current) drug therapy; Z95.9 Presence of cardiac and vascular implant and graft, unspecified; Z90.49 Acquired absence of other specified parts of digestive tract; Z87.891 Personal history of nicotine dependence; Z82.49 Family history of ischemic heart disease and other diseases of the circulatory system; Z91.040 Latex allergy status
CPT/HCPCS: 36415; 70450; 71045; 80048; 80053; 80307; 81001; 83690; 83735; 84484; 85025; 87804; 93005; 93010; 96361; 96365; 96366; 96368; 96375; 99285; C9113; J0360; J1200; J2060; J2270; J2405; J2550; J2765; J3475; J3480; J3490; J7030; J7042

== ENCOUNTER 2019-05-08 15:46 | Observation (INO) | payer MEDICARE, MEDICAID ==
--- NOTE | 2019-05-08 16:30 | ER Document Report ---
ED Medical Screen (RME) - General Mode of Arrival: Ambulatory Information source: Patient TRAVEL OUTSIDE OF THE [place] IN LAST 30 DAYS: No - General Chief Complaint: Nausea/Vomiting Stated Complaint: NAUSEA/VOMITING Time Seen by Provider: 05/08/19 16:29 Notes: 58-year-old female presents to ED for nausea vomiting and abdominal pain with a headache. She states she has an aneurysm that they are watching the last time they checked that was in 59. She states she was discharged from the hospital yesterday with gastroenteritis. She states she has had nausea vomiting since she went home yesterday. She states she had a headache yesterday when she was discharged and is just worse now. Patient is alert oriented respirations regular nonlabored speaking in full sentences. I have greeted and performed a rapid initial assessment of this patient. A comprehensive ED assessment and evaluation of the patient, analysis of test results and completion of medical decision making process will be conducted by an additional ED providers. (ANTELMO STAPLES) - Related Data Allergies/Adverse Reactions: latex Allergy (Verified 05/08/19 16:28) Past Medical History - Past Medical History Cardiac Medical History: Reports: Hx Coronary Artery Disease, Hx Hypercholesterolemia, Hx Hypertension, Hx Heart Murmur Pulmonary Medical History: Reports: Hx Asthma, Hx COPD Neurological Medical History: Reports: Hx Seizures - last 3yrs ago d/t aneurysm Renal/ Medical History: Denies: Hx Peritoneal Dialysis GI Medical History: Reports: Hx Gastritis Psychiatric Medical History: Reports: Hx Depression Infectious Medical History: Denies: Hx C-Diff Past Surgical History: Reports: Hx Abdominal Surgery - gastric bypass, Hx Section - x2, Hx Neurologic Surgery - brain aneurysm x 4 since 2011, Hx Vascular Surgery, Other - Partial colectomy Physical Exam - Vital signs Vitals: Temp Pulse Resp BP Pulse Ox 98.4 F 92 28 H 190/102 H 98 05/08/19 15:50 05/08/19 15:50 05/08/19 15:50 05/08/19 15:50 05/08/19 15:50 Course - Vital Signs Vital signs: Temp Pulse Resp BP Pulse Ox 98.4 F 92 28 H 170/104 H 98 05/08/19 15:50 05/08/19 15:50 05/08/19 15:50 05/08/19 16:36 05/08/19 15:50
[2019-05-08] MEDS ORDERED: PROMETHAZINE HCL 25 MG TABLET PO ONE (16:33)
--- NOTE | 2019-05-08 18:03 | ER Document Report ---
ED General - General Chief Complaint: Nausea/Vomiting Stated Complaint: NAUSEA/VOMITING Time Seen by Provider: 05/08/19 16:29 Mode of Arrival: Ambulatory TRAVEL OUTSIDE OF THE [place] IN LAST 30 DAYS: No - Related Data Allergies/Adverse Reactions: latex Allergy (Verified 05/08/19 16:28) Past Medical History - General Information source: Patient - Social History Smoking Status: Current Every Day Smoker Chew tobacco use (# tins/day): No Frequency of alcohol use: None Drug Abuse: None Family History: Hypertension Patient has suicidal ideation: No Patient has homicidal ideation: No - Past Medical History Cardiac Medical History: Reports: Hx Coronary Artery Disease, Hx Hyperchole sterolemia, Hx Hypertension, Hx Heart Murmur Pulmonary Medical History: Reports: Hx Asthma, Hx COPD Neurological Medical History: Reports: Hx Seizures - last 3yrs ago d/t aneurysm Renal/ Medical History: Denies: Hx Peritoneal Dialysis GI Medical History: Reports: Hx Gastritis Psychiatric Medical History: Reports: Hx Depression Infectious Medical History: Denies: Hx C-Diff Past Surgical History: Reports: Hx Abdominal Surgery - gastric bypass, Hx Section - x2, Hx Neurologic Surgery - brain aneurysm x 4 since 2011, Hx Vascular Surgery, Other - Partial colectomy Physical Exam - Vital signs Vitals: Temp Pulse Resp BP Pulse Ox 98.4 F 92 28 H 190/102 H 98 05/08/19 15:50 05/08/19 15:50 05/08/19 15:50 05/08/19 15:50 05/08/19 15:50 Interpretation: Normal - Notes Notes: Patient presents emerge department complaining of generalized abdominal pain that started yesterday. Also associated with multiple episodes of nausea and vomiting. This is not able to tolerate any liquids. Denies any fevers diarrhea or dysuria. Chest pain or shortness of breath. Planing of headache this on the top of the head. Headache started earlier today. Gradually got progressively worse it was not a thunderclap headache and not the worst headache is ever had. He with any abnormal vision. Headache is similar to what the headache she had in the past. Patient was admitted to the hospital 4 days ago with abdominal pain and vomiting. She was discharged yesterday with prescriptions for Ativan and [place] and enzymatic but did not get them filled. She said that during the hospital stay she was not given anything to drink and was having intermittent headaches. CT of the abdomen and pelvis and head CT on the that were unremarkable Past medical history is 7 for hypertension and seizures COPD diabetes. Surgical history includes partial colectomy as well as stent and coiling of her aneurysms Social history she smokes no alcohol Review of systems pertinent positives and negatives in HPI otherwise all the systems were reviewed and acutely negative PHYSICIAN EXAM -vital signs are noted triage note and note from triage reviewed GENERAL: Well-appearing, well-nourished and in __no acute distress____ HEAD: Atraumatic, normocephalic. EYES: Pupils equal round and reactive to light, extraocular movements intact, no nystagmus or photophobia sclera anicteric, conjunctiva are normal. ENT: nares patent, oropharynx clear without exudates. Slightly dry mucous membranes. Face is nontender NECK: supple without lymphadenopathy no meningeal signs LUNGS: Breath sounds clear to auscultation bilaterally and equal. No wheezes rales or rhonchi. HEART: Regular rate and rhythm without murmurs ABDOMEN: Soft, minimal diffuse tenderness throughout worse on the right side especially right upper quadrant with an equivocal Prasad's no peritoneal signs EXTREMITIES: No deformity, no edema. NEUROLOGICAL: Alert and oriented x4. Cranial nerves he has symmetrical smile facies and shoulder shrug. His motor strength is 5/5 bilaterally in the upper and lower extremities. Toes downgoing. Sensation is intact to light touch is a negative Romberg and normal gait per family PSYCH: Normal mood, normal affect. SKIN: Warm, Dry, normal turgor, no rashes or lesions noted. BACK-nontender in the midline Differential diagnosis dehydration gastroenteritis small bowel obstruction migraine headache tension headache Course - Re-evaluation Re-evalutation: 05/08/19 21:28 ED patient is remained stable persistently elevated blood pressure infection Mr. medications she was given a dose of labetalol with improvement of her blood pressure. She was given Zofran with no relief and then Phenergan with some moderate control of her vomiting. Given fentanyl was controlled pain for a brief period time and then returned. CT was obtained she was started on antibiotics. Continues to have a nonfocal neurological exam Medical decision making patient presents with abdominal pain nausea vomiting. Have some mild colitis on CT and will need admission to the hospital since she just discharged yesterday. The headache is similar to what she had before she has no neurological deficit she had a CT of the head the other day. Did not feel that it is related to her aneurysm I have consulted the hospitalist for admission - Vital Signs Vital signs: Temp Pulse Resp BP Pulse Ox 98.4 F 92 23 H 206/124 H 93 05/08/19 15:50 05/08/19 15:50 05/08/19 20:15 05/08/19 20:21 05/08/19 20:15 - Laboratory Result Diagrams: 05/08/19 18:35 05/08/19 18:35 Laboratory results interpreted by me: 05/08/19 05/08/19 05/08/19 17:42 18:35 18:35 WBC 11.7 H Hgb 11.9 L Hct 35.6 L MCH 26.7 L RDW 15.6 H Plt Count 69 L Absolute Neuts (auto) 9.2 H Seg Neutrophils % 78.4 H Sodium 136.1 L Potassium 3.0 L* Total Protein 6.0 L Albumin 3.3 L Urine Protein 100 H Urine Urobilinogen 2.0 H Discharge - Discharge Clinical Impression: Headache Qualifiers: Intractability: not intractable Abdominal pain Qualifiers: Abdominal location: unspecified location Qualified Code(s): R10.9 - Unspecified abdominal pain Hypertension Qualifiers: Hypertension type: essential hypertension Qualified Code(s): I10 - Essential (primary) hypertension Disposition: ADMITTED OBSERVATION Admitting Provider: Kary (Hospitalist)
[2019-05-08] MEDS ORDERED: NORMAL SALINE 1000 ML 1,000 ML IV ONE ×2 (18:05)
[2019-05-08] MEDS ORDERED: ONDANSETRON HCL INJ/PF 4 MG/2 ML SDV IV ONE ×2 (18:06→20:05)
[2019-05-08] MEDS ORDERED: FENTANYL CITRATE INJ/PF 100 MCG/2 ML AMPUL IV ONE (18:07)
[2019-05-08 18:09] LABS: APPEARANCE,URINE CLEAR; BILIRUBIN,URINE NEGATIVE (NEGATIVE); COLOR,URINE YELLOW; GLUCOSE, URINE NEGATIVE (NEGATIVE); KETONES,URINE NEGATIVE (NEGATIVE); PROTEIN,URINE 100 mg/dL (NEGATIVE); URINE SPECIFIC GRAVITY 1.012
[2019-05-08 18:57] LABS: ABSOLUTE BASOPHILS # (AUTO) 0.1 10^3/uL (0.0-0.2); ABSOLUTE EOSINOPHILS # (AUTO) 0.2 10^3/uL (0.0-0.6); ABSOLUTE LYMPHOCYTES (AUTO) 1.5 10^3/uL (0.5-4.7); ABSOLUTE MONOCYTES (AUTO) 0.7 10^3/uL (0.1-1.4); ABSOLUTE NEUT (AUTO) 9.2 10^3/uL (1.7-8.2); BASOPHILS % (AUTO) 0.9 % (0-2); EOSINOPHILS % (AUTO) 1.6 % (0-6); HEMATOCRIT 35.6 % (36.0-47.0); HEMOGLOBIN 11.9 g/dL (12.0-15.5); MEAN CORPUSCULAR HEMOGLOBIN 26.7 pg (27.0-33.4); MEAN CORPUSCULAR HGB CONC 33.4 g/dL (32.0-36.0); MEAN CORPUSCULAR VOLUME 80 fl (80-97); MONOCYTES % (AUTO) 6.1 % (3-13); RED BLOOD COUNT 4.45 10^6/uL (3.72-5.28); RED CELL DISTRIBUTION WIDTH 15.6 % (11.5-14.0); SEGMENTED NEUTROPHILS % (AUTO) 78.4 % (42-78); TOTAL CELLS COUNTED % (AUTO) 100 %; WHITE BLOOD COUNT 11.7 10^3/uL (4.0-10.5)
[2019-05-08 19:12] LABS: PLATELET COUNT 69 10^3/uL (150-450)
[2019-05-08 19:25] LABS: ALBUMIN 3.3 g/dL (3.5-5.0); ALKALINE PHOSPHATASE 69 U/L (38-126); ANION GAP 7 (5-19); ASPARTATE AMINO TRANSFERASE 30 U/L (14-36); BILIRUBIN,DIRECT 0.1 mg/dL (0.0-0.4); BILIRUBIN,TOTAL 0.4 mg/dL (0.2-1.3); BLOOD UREA NITROGEN 12 mg/dL (7-20); CALCIUM 9.2 mg/dL (8.4-10.2); CARBON DIOXIDE 30 mmol/L (22-30); CHLORIDE 99 mmol/L (98-107); GLUCOSE 100 mg/dL (75-110)
[2019-05-08] MEDS ORDERED: PROMETHAZINE HCL INJ 25 MG/1 ML VIAL IV ONE (20:26)
[2019-05-08] MEDS ORDERED: LABETALOL HCL INJ 20 MG/4 ML DISP.SYRIN IV ONE (20:26)
[2019-05-08] MEDS ORDERED: POTASSI CL 20 MEQ/50 ML RIDER 20 MEQ/50 ML RTUPB IV ONE (20:27)
--- NOTE | 2019-05-08 20:30 | RADIOLOGY REPORT (SQ) ---
EXAM DESCRIPTION: CT ABDOMEN PELVIS WITH IV CONTRAST COMPLETED DATE/TME: 05/08/2019 18:07 CLINICAL HISTORY: 58 years Female Abdominal pain COMPARISON: 05/02/2019. 10/08/2018 TECHNIQUE: Contiguous axial images obtained through the abdomen and pelvis following IV contrast. Reformatted images obtained. This exam was performed according to our department optimization program which includes automated exposure control, adjustment of the mA and/or kv according to patient size and/or use of iterative reconstruction technique. FINDINGS: Atelectasis in the lung bases with small amount of fluid. Liver is within normal limits. Gastric distention. Unremarkable pancreas. Dense calcification in the spleen likely calcified cyst. There is an adjacent low-attenuation focus which is indeterminate but unchanged. No adrenal masses. Prominent extrarenal pelvis on the right and left which were present on the previous exam. 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 No aneurysmal dilatation of the aorta. Vascular calcification. No bowel obstruction. The appendix is not clearly seen.. Question mild wall thickening in segments of the colon versus incomplete distention. Moderate fecal material is noted. Small amount of diffuse stranding in the mesentery of the abdomen and pelvis which is nonspecific. IMPRESSION: Suggestion of mild wall thickening along segments of the transverse descending and sigmoid colon which May reflect mild colitis Gastric distention Basilar atelectasis and small bilateral effusions Additional changes as above
[2019-05-08] MEDS ORDERED: AMPICILLIN SOD/SULBACTAM 3 GM VIAL IV ONE (21:31)
[2019-05-08] MEDS ORDERED: MORPHINE SULFATE 10 MG/ML INJ IV ONE (21:31)
[2019-05-08] MEDS ORDERED: PIPERACILLIN/TAZOBACTAM 3.375 GM VIAL IV ONE (21:43)
[2019-05-08] MEDS ORDERED: HYDRALAZINE HCL INJ/PF 20 MG/1 ML SDV IV PRN (22:34)
[2019-05-08] MEDS ORDERED: MORPHINE SULFATE 10 MG/ML INJ IV PRN (22:34)
[2019-05-08] MEDS ORDERED: NICOTINE 21 MG/24 HR PATCH.TD24 TD PRN (22:34)
[2019-05-08] MEDS ORDERED: MAG HYDROX/AL HYDROX/SIMETH SUSP 30 ML UDCUP PO PRN (22:34)
[2019-05-08] MEDS ORDERED: LABETALOL HCL INJ 20 MG/4 ML DISP.SYRIN IV PRN (22:34)
[2019-05-08] MEDS ORDERED: ACETAMINOPHEN 650 MG SUPP.RECT PR PRN (22:34)
[2019-05-08] MEDS ORDERED: MAGNESIUM HYDROXIDE SUSP 30 ML UDCUP PO PRN (22:34)
[2019-05-08] MEDS ORDERED: LEVALBUTEROL HCL NEB 0.63 MG/3 ML AMPUL NEB PRN (22:34)
[2019-05-08] MEDS ORDERED: DEXTROSE 5%-LACTATED RINGERS 1,000 ML IV PRN (22:37)
[2019-05-08] MEDS ORDERED: PIPERACILLIN/TAZOBACTAM 3.375 GM VIAL IV PRN (22:45)
[2019-05-08] MEDS: DIAZEPAM INJ 10 MG/2 ML DISP.SYRIN IV PRN (23:41)
[2019-05-08] MEDS: FAMOTIDINE INJ/PF 20 MG/2 ML SDV IV SCH (23:41)
[2019-05-09] MEDS: METOCLOPRAMIDE HCL INJ/PF 10 MG/2 ML SDV IV SCH ×4 (01:26→18:28)
--- NOTE | 2019-05-09 01:35 | PDOC H&P ---
History of Present Illness Admission Date/PCP: 05/08/2019 21:54 No local PCP Patient complains of: Abdominal pain History of Present Illness: JER LACEY is a 58 year old female who presented to the emergency room with a 5-day history of abdominal pain. Patient admits that she was recently hospitalized for abdominal pain and her pain and associated symptoms improved during her hospital course, however upon discharge she did not get her medications filled and her abdominal pain with accompanying headache and associated nausea and vomiting redeveloped and progressively worsened since her discharge yesterday. Her constant cramping generalized abdominal pain is now of severe intensity and without radiation. Her nausea and vomiting have prevented her from consuming any liquids or solids for the last 24 hours. Her headache is typical of her chronic headaches related to cerebral aneurysms. She denies other associated or accompanying signs and symptoms. She has not identified any aggravating or ameliorating factors for her abdominal pain. In the emergency room she was found to have a potassium of 3.0 and a possible multifocal colitis by CT scan of the abdomen and pelvis. She was started on IV antibiotics and potassium repletion in the ER. She was subsequently admitted to the hospital for further evaluation and treatment. Past Medical History Cardiac Medical History: Reports: Coronary Artery Disease, Hyperlipidema, Hypertension, Heart Murmur Pulmonary Medical History: Reports: Asthma, Chronic Obstructive Pulmonary Disease (COPD) EENT Medical History: Denies: Cataracts, Ears - Hearing aids Neurological Medical History: Reports: Seizures - last 3yrs ago d/t aneurysm, Other - History of intracranial aneurysms with chronic recurrent headaches Denies: Hemorrhagic CVA, Ischemic CVA, Multiple Sclerosis Endocrine Medical History: Denies: Diabetes Mellitus Type 1, Diabetes Mellitus Type 2, Hyperthyroidism, Hypothyroidism Renal/ Medical History: Denies: Chronic Kidney Disease, Nephrolithiasis Malignancy Medical History: Reports: None GI Medical History: Denies: Cirrhosis, Crohn's Disease, Hepatitis, Peptic Ulcer Disease, Ulcerative Colitis Musculoskeltal Medical History: Denies: Arthritis, Gout Skin Medical History: Denies: Eczema, Psoriasis Psychiatric Medical History: Reports: Depression, Tobacco Dependency Denies: Alcohol Dependency, Substance Abuse Traumatic Medical History: Reports: None Hematology: Denies: Anemia, Bleeding Tendencies Infectious Medical History: Reports: None Past Surgical History Past Surgical History: Reports: Section - x2, Vascular Surgery - Coiling of intracranial aneurysms, Other - Partial colectomy Social History Information Source: Patient Lives with: Alone Smoking Status: Current Every Day Smoker Electronic Cigarette use?: No Frequency of Alcohol Use: None Hx Recreational Drug Use: No Drugs: None - Advance Directive Resuscitation Status: Full Code Surrogate healthcare decision maker:: Aliya Zamarripa Family History Family History: Hypertension. denies: CAD, DM, Malignancy Parental Family History Reviewed: Yes Children Family History Reviewed: No Sibling(s) Family History Reviewed.: Yes Medication/Allergy Home Medications: Acetaminophen [Tylenol 325 mg Tablet] 650 mg PO Q4HP PRN tablet 05/06/19 Hydrocodone/Acetaminophen [[place] 5-325 mg Tablet] 1 tab PO Q8 PRN 5 Days #8 tablet 05/06/19 Lorazepam [Ativan 0.5 mg Tablet] 0.5 mg PO Q12 5 Days #8 tab 05/06/19 Nicotine [Nicoderm 21 mg/24 Hr Transderm Patch] 1 each TD DAILY patch.td24 05/06/19 Pantoprazole Sodium [Protonix [address] Tablet] 40 mg PO QAM 14 Days #14 tablet.dr 05/06/19 Sucralfate [Carafate 1 gm Tablet] 1 gm PO ACHS 14 Days #56 tablet 05/06/19 Lisinopril [Zestril] 40 mg PO DAILY 05/09/19 Allergies/Adverse Reactions: latex Allergy (Verified 05/08/19 16:28) Review of Systems Constitutional: PRESENT: as per HPI, headache(s). ABSENT: chills, fever(s) Eyes: ABSENT: visual disturbances, other - Eye pain Ears: ABSENT: hearing changes, other - Ear pain Nose, Mouth, and Throat: PRESENT: as per HPI, headache(s). ABSENT: mouth pain, sore throat Cardiovascular: ABSENT: chest pain, palpitations Respiratory: ABSENT: cough, dyspnea Gastrointestinal: PRESENT: abdominal pain, nausea, vomiting. ABSENT: constipation, diarrhea, hematemesis Genitourinary: ABSENT: dysuria, hematuria Musculoskeletal: ABSENT: back pain, joint swelling, muscle weakness Integumentary: ABSENT: pruritus, rash, wounds Neurological: ABSENT: confusion, convulsions, focal weakness, memory loss, syncope Psychiatric: ABSENT: anxiety, depression Endocrine: ABSENT: cold intolerance, heat intolerance Hematologic/Lymphatic: ABSENT: easy bleeding, easy bruising Allergic/Immunologic: PRESENT: other - Latex allergy. ABSENT: seasonal rhinorrhea Physical Exam Vital Signs: Temp Pulse Resp BP Pulse Ox 98.4 F 92 23 H 206/124 H 93 05/08/19 15:50 05/08/19 15:50 05/08/19 20:15 05/08/19 20:21 05/08/19 20:15 Intake & Output 05/06/19 05/07/19 05/08/19 23:59 23:59 23:59 Intake Total 1000 Balance 1000 Weight 53 kg General appearance: PRESENT: cooperative, mild distress - Mild distress secondary to abdominal pain and nausea Head exam: PRESENT: atraumatic, normocephalic Eye exam: PRESENT: conjunctiva pink. ABSENT: conjunctival injection, scleral icterus Ear exam: PRESENT: normal external ear exam. ABSENT: bleeding, drainage Mouth exam: PRESENT: dry mucosa, neck supple Neck exam: ABSENT: thyromegaly, tracheal deviation Respiratory exam: PRESENT: decreased breath sounds - Minimally decreased breath sounds throughout all graff, prolonged expiratory phas - Minimally prolonged expiratory phase in all graff, symmetrical, unlabored, wheezes - Minimal expiratory wheezing in all graff Cardiovascular exam: PRESENT: RRR. ABSENT: clicks, gallop, rubs Pulses: PRESENT: normal radial pulses, normal dorsalis pedis pul Vascular exam: PRESENT: normal capillary refill. ABSENT: pallor GI/Abdominal exam: PRESENT: hypoactive bowel sounds, soft, tenderness - Generalized tenderness to palpation Rectal exam: PRESENT: deferred Extremities exam: ABSENT: joint swelling, pedal edema Musculoskeletal exam: ABSENT: deformity, dislocation Neurological exam: PRESENT: alert, oriented to person, oriented to place, oriented to time, oriented to situation, CN II-XII grossly intact. ABSENT: motor sensory deficit Psychiatric exam: PRESENT: appropriate affect, normal mood Skin exam: PRESENT: dry, intact, warm. ABSENT: jaundice, rash, urticaria Results Laboratory Results: 05/08/19 18:35 05/08/19 18:35 05/08/19 05/08/19 05/08/19 17:42 18:35 18:35 WBC 11.7 H RBC 4.45 Hgb 11.9 L Hct 35.6 L MCV 80 MCH 26.7 L MCHC 33.4 RDW 15.6 H Plt Count 69 L Seg Neutrophils % 78.4 H Sodium 136.1 L Potassium 3.0 L* Chloride 99 Carbon Dioxide 30 Anion Gap 7 BUN 12 Creatinine 0.76 Est GFR ( Amer) > 60 Glucose 100 Calcium 9.2 Total Bilirubin 0.4 AST 30 Alkaline Phosphatase 69 Total Protein 6.0 L Albumin 3.3 L Lipase 65.1 Urine Color YELLOW Urine Appearance CLEAR Urine pH 8.0 Ur Specific [place] 1.012 Urine Protein 100 H Urine Glucose (UA) NEGATIVE Urine Ketones NEGATIVE Urine Blood NEGATIVE Urine RBC (Auto) 1 Impressions: Abdomen/Pelvis CT 05/08/19 18:07 IMPRESSION: Suggestion of mild wall thickening along segments of the transverse descending and sigmoid colon which May reflect mild colitis Gastric distention Basilar atelectasis and small bilateral effusions Additional changes as above Assessment and Plan - Diagnosis (1) Abdominal pain Qualifiers: Abdominal location: generalized Qualified Code(s): R10.84 - Generalized abdominal pain Is this a current diagnosis for this admission?: Yes (2) Intractable vomiting Qualifiers: Vomiting type: unspecified Nausea presence: with nausea Qualified Code(s): R11.2 - Nausea with vomiting, unspecified Is this a current diagnosis for this admission?: Yes (3) Colitis Is this a current diagnosis for this admission?: Yes (4) Hypokalemia due to excessive gastrointestinal loss of potassium Is this a current diagnosis for this admission?: Yes (5) Hypertension Qualifiers: Hypertension type: essential hypertension Qualified Code(s): I10 - Essential (primary) hypertension Is this a current diagnosis for this admission?: Yes (6) Intracranial aneurysm Is this a current diagnosis for this admission?: Yes (7) Tobacco use disorder, severe, dependence Is this a current diagnosis for this admission?: Yes - Plan Summary Summary: Patient is admitted to [facility] on a medical bed where she will receive routine supportive and symptomatic cares. She will be continued on IV a ntibiotic therapy with Zosyn 3.375 g IV every 6 hours initially with conversion to oral therapy planned for tomorrow at the discretion of the daytime hospitalist. Her headache and abdominal pain will be treated with morphine sulfate 2 to 4 mg IV every 2 hours on an as-needed basis using a sliding scale for pain. Her nausea and vomiting be treated with Phenergan 12.5 mg IV every 4 hours as needed. Her CBC and basic metabolic profile be followed on a regular basis with further repletion of electrolytes as appropriate. She will be maintained on IV fluids and encouraged to start on a clear liquid diet. Further evaluation and treatment will be provided as needed. - Time Time Spent with patient: 25-34 minutes Smoking Cessation Education: 3 to 10 minutes Medications reviewed and adjusted accordingly: Yes Anticipated discharge: Home - Inpatient Certification Based on my medical assessment, after consideration of the patient's comorbidities, presenting symptoms, or acuity I expect that the services needed warrant INPATIENT care.: No I certify that my determination is in accordance with my understanding of Medicare's requirements for reasonable and necessary INPATIENT services [42 CFR 412.3e].: No Medical Necessity: Failure to Improve With Outpatient Therapy, Need Close Monitoring Due to Risk of Patient Decompensation, Need For IV Fluids, Need for Pain Control, Need for IV Antibiotics, Risk of Complication if Not Cared For in Hospital, Risk of Diagnosis Which Will Require Inpatient Eval/Care/Monitoring
[2019-05-09] MEDS: MORPHINE SULFATE 10 MG/ML INJ IV PRN ×4 (04:49→20:32)
[2019-05-09] MEDS: HEPARIN SOD (PORCINE) 5,000 UNIT/ML 1 ML VIAL SUBCUT SCH ×3 (05:53→21:51)
[2019-05-09] MEDS: PIPERACILLIN SODIUM/TAZOBACTAM 3.375 GM in NORMAL SALINE 100 ML IV SCH ×3 (05:58→18:28)
[2019-05-09] MEDS ORDERED: PIPERACILLIN/TAZOBACTAM 3.375 GM VIAL IV ONE (06:09)
[2019-05-09 07:05] LABS: HEMOGLOBIN 11.3 g/dL (12.0-15.5); MEAN CORPUSCULAR HGB CONC 33.4 g/dL (32.0-36.0); MEAN CORPUSCULAR VOLUME 81 fl (80-97); RED BLOOD COUNT 4.21 10^6/uL (3.72-5.28); RED CELL DISTRIBUTION WIDTH 15.9 % (11.5-14.0); WHITE BLOOD COUNT 8.8 10^3/uL (4.0-10.5)
[2019-05-09 07:20] LABS: BLOOD UREA NITROGEN 9 mg/dL (7-20); CALCIUM 8.7 mg/dL (8.4-10.2); CARBON DIOXIDE 29 mmol/L (22-30); GLUCOSE 102 mg/dL (75-110)
[2019-05-09 07:24] LABS: PLATELET COUNT 66 10^3/uL (150-450)
[2019-05-09 07:27] LABS: ANION GAP 6 (5-19); CHLORIDE 104 mmol/L (98-107)
[2019-05-09] MEDS: SUCRALFATE 1 GM TABLET PO SCH ×4 (07:52→21:50)
[2019-05-09] MEDS: DIAZEPAM INJ 10 MG/2 ML DISP.SYRIN IV PRN ×2 (07:52→20:31)
--- NOTE | 2019-05-09 09:03 | PDOC PROGRESS REPORT ---
Subjective Progress Note for:: 05/09/19 Subjective:: 05/09/2019-no complaints Reason For Visit: ABDOMINAL PAIN, NAUSEA AND VOMITING Physical Exam Vital Signs: Temp Pulse Resp BP Pulse Ox 98.9 F 103 H 18 150/83 H 97 05/09/19 00:58 05/09/19 00:58 05/09/19 00:58 05/09/19 00:58 05/09/19 00:58 Intake & Output 05/08/19 05/09/19 05/10/19 06:59 06:59 06:59 Intake Total 1730 2100 Output Total 800 Balance 930 2100 Weight 53.2 kg General appearance: PRESENT: no acute distress, well-developed, well-nourished Head exam: PRESENT: atraumatic, normocephalic Eye exam: PRESENT: conjunctiva pink, EOMI, PERRLA. ABSENT: scleral icterus Ear exam: PRESENT: normal external ear exam Mouth exam: PRESENT: moist, tongue midline Neck exam: ABSENT: carotid bruit, JVD, lymphadenopathy, thyromegaly Respiratory exam: PRESENT: clear to auscultation natalie. ABSENT: rales, rhonchi, wheezes Cardiovascular exam: PRESENT: RRR. ABSENT: diastolic murmur, rubs, systolic murmur Pulses: PRESENT: normal dorsalis pedis pul Vascular exam: PRESENT: normal capillary refill GI/Abdominal exam: PRESENT: normal bowel sounds, soft. ABSENT: distended, guarding, mass, organolmegaly, rebound, tenderness Rectal exam: PRESENT: deferred Extremities exam: PRESENT: full ROM. ABSENT: calf tenderness, clubbing, pedal edema Neurological exam: PRESENT: alert, awake, oriented to person, oriented to place, oriented to time, oriented to situation, CN II-XII grossly intact. ABSENT: motor sensory deficit Psychiatric exam: PRESENT: appropriate affect, normal mood. ABSENT: homicidal ideation, suicidal ideation Skin exam: PRESENT: dry, intact, warm. ABSENT: cyanosis, rash Results Laboratory Results: 05/09/19 06:39 05/09/19 06:39 05/08/19 05/08/19 05/08/19 17:42 18:35 18:35 WBC 11.7 H RBC 4.45 Hgb 11.9 L Hct 35.6 L MCV 80 MCH 26.7 L MCHC 33.4 RDW 15.6 H Plt Count 69 L Seg Neutrophils % 78.4 H Sodium 136.1 L Potassium 3.0 L* Chloride 99 Carbon Dioxide 30 Anion Gap 7 BUN 12 Creatinine 0.76 Est GFR ( Amer) > 60 Glucose 100 Calcium 9.2 Magnesium Total Bilirubin 0.4 AST 30 Alkaline Phosphatase 69 Total Protein 6.0 L Albumin 3.3 L Lipase 65.1 TSH Urine Color YELLOW Urine Appearance CLEAR Urine pH 8.0 Ur Specific [place] 1.012 Urine Protein 100 H Urine Glucose (UA) NEGATIVE Urine Ketones NEGATIVE Urine Blood NEGATIVE Urine RBC (Auto) 1 05/09/19 05/09/19 05/09/19 06:39 06:39 06:39 WBC 8.8 RBC 4.21 Hgb 11.3 L Hct 34.0 L MCV 81 MCH 27.0 MCHC 33.4 RDW 15.9 H Plt Count 66 L Seg Neutrophils % Sodium 138.6 Potassium 3.0 L* Chloride 104 Carbon Dioxide 29 Anion Gap 6 BUN 9 Creatinine 0.73 Est GFR ( Amer) > 60 Glucose 102 Calcium 8.7 Magnesium 1.6 Total Bilirubin AST Alkaline Phosphatase Total Protein Albumin Lipase TSH 3.65 Urine Color Urine Appearance Urine pH Ur Specific [place] Urine Protein Urine Glucose (UA) Urine Ketones Urine Blood Urine RBC (Auto) Impressions: Abdomen/Pelvis CT 05/08/19 18:07 IMPRESSION: Suggestion of mild wall thickening along segments of the transverse descending and sigmoid colon which May reflect mild colitis Gastric distention Basilar atelectasis and small bilateral effusions Additional changes as above Assessment and Plan - Diagnosis (1) Abdominal pain Qualifiers: Abdominal location: generalized Qualified Code(s): R10.84 - Generalized abdominal pain Is this a current diagnosis for this admission?: Yes Plan: 05/09/2019-improved this time. Patient requesting a diet. Regular diet this time. Replete electrolytes at this point discharge home in a.m. (2) Colitis Is this a current diagnosis for this admission?: Yes Plan: 05/09/2019-see #1 (3) Hypertension Qualifiers: Hypertension type: essential hypertension Qualified Code(s): I10 - Essential (primary) hypertension Is this a current diagnosis for this admission?: Yes Plan: 05/09/2019-remains elevated. Have added Norvasc 10 mg p.o. daily continue to follow (4) Intracranial aneurysm Is this a current diagnosis for this admission?: Yes Plan: 05/09/2019-stable (5) Tobacco use disorder, severe, dependence Is this a current diagnosis for this admission?: Yes Plan: 05/09/2019-continue to educate on smoking cessation (6) Hypokalemia due to excessive gastrointestinal loss of potassium Is this a current diagnosis for this admission?: Yes Plan: 05/09/2019-potassium chloride 40 mg p.o. every 4 hours x3 doses repeat potassium in a.m. (7) Intractable vomiting Qualifiers: Vomiting type: unspecified Nausea presence: with nausea Qualified Code(s): R11.2 - Nausea with vomiting, unspecified Is this a current diagnosis for this admission?: Yes Plan: 05/09/2019-stable at this time continue PRN antiemetics - Plan Summary Summary: Patient is admitted to [facility] on a medical bed where she will receive routine supportive and symptomatic cares. She will be continued on IV antibiotic therapy with Zosyn 3.375 g IV every 6 hours initially with conversion to oral therapy planned for tomorrow at the discretion of the daytime hospitalist. Her headache and abdominal pain will be treated with morphine sulfate 2 to 4 mg IV every 2 hours on an as-needed basis using a sliding scale for pain. Her nausea and vomiting be treated with Phenergan 12.5 mg IV every 4 hours as needed. Her CBC and basic metabolic profile be followed on a regular basis with further repletion of electrolytes as appropriate. She will be maintained on IV fluids and encouraged to start on a clear liquid diet. Further evaluation and treatment will be provided as needed. - Time Time Spent with patient: 15-24 minutes
[2019-05-09] MEDS: POTASSIUM CHLORIDE 10 MEQ TABLET.ER PO SCH ×3 (09:59→14:01)
[2019-05-09] MEDS: AMLODIPINE BESYLATE 10 MG TABLET PO SCH (10:10)
[2019-05-09] MEDS: FAMOTIDINE INJ/PF 20 MG/2 ML SDV IV SCH ×2 (10:10→21:51)
--- NOTE | 2019-05-09 12:35 | EKG REPORT ---
SEVERITY:- ABNORMAL ECG - SINUS RHYTHM ATRIAL PREMATURE COMPLEX NONSPECIFIC T ABNORMALITIES, ANTERIOR LEADS : Confirmed by: Michael Buck 09-May-2019 12:34:23
[2019-05-09] MEDS: PROMETHAZINE HCL INJ 25 MG/1 ML VIAL IV PRN ×2 (14:08→21:50)
[2019-05-09] MEDS ORDERED: DIPHENHYDRAMINE HCL 25 MG CAPSULE PO PRN (15:36)
[2019-05-10] MEDS: METOCLOPRAMIDE HCL INJ/PF 10 MG/2 ML SDV IV SCH ×2 (00:21→05:32)
[2019-05-10] MEDS: PIPERACILLIN SODIUM/TAZOBACTAM 3.375 GM in NORMAL SALINE 100 ML IV SCH ×2 (00:21→05:32)
[2019-05-10] MEDS: MORPHINE SULFATE 10 MG/ML INJ IV PRN ×2 (05:32→08:30)
[2019-05-10] MEDS: HEPARIN SOD (PORCINE) 5,000 UNIT/ML 1 ML VIAL SUBCUT SCH (05:35)
[2019-05-10 05:50] LABS: ANION GAP 7 (5-19); BLOOD UREA NITROGEN 9 mg/dL (7-20); CALCIUM 9.2 mg/dL (8.4-10.2); CARBON DIOXIDE 29 mmol/L (22-30); CHLORIDE 105 mmol/L (98-107); GLUCOSE 91 mg/dL (75-110)
[2019-05-10 06:18] LABS: POTASSIUM 4.4 mmol/L (3.6-5.0)
[2019-05-10] MEDS: SUCRALFATE 1 GM TABLET PO SCH ×2 (08:30→10:57)
--- NOTE | 2019-05-10 09:27 | PDOC DISCHARGE SUMMARY ---
Impression - Admit/DC Date/PCP Admission Date/Primary Care Provider: 05/08/19 22:47 Discharge Date: 05/10/19 - Discharge Diagnosis (1) Abdominal pain Is this a current diagnosis for this admission?: Yes (2) Colitis Is this a current diagnosis for this admission?: Yes (3) Hypertension Is this a current diagnosis for this admission?: Yes (4) Intracranial aneurysm Is this a current diagnosis for this admission?: Yes (5) Tobacco use disorder, severe, dependence Is this a current diagnosis for this admission?: Yes (6) Hypokalemia due to excessive gastrointestinal loss of potassium Is this a current diagnosis for this admission?: Yes (7) Intractable vomiting Is this a current diagnosis for this admission?: Yes - Assessment Summary: Patient is admitted to [facility] on a medical bed where she will receive routine supportive and symptomatic cares. She will be continued on IV antibiotic therapy with Zosyn 3.375 g IV every 6 hours initially with conversion to oral therapy planned for tomorrow at the discretion of the daytime hospitalist. Her headache and abdominal pain will be treated with morphine sulfate 2 to 4 mg IV every 2 hours on an as-needed basis using a sliding scale for pain. Her nausea and vomiting be treated with Phenergan 12.5 mg IV every 4 hours as needed. Her CBC and basic metabolic profile be followed on a regular basis with further repletion of electrolytes as appropriate. She will be maintained on IV fluids and encouraged to start on a clear liquid diet. Further evaluation and treatment will be provided as needed. - Additional Information Resuscitation Status: Full Code Discharge Diet: As Tolerated Discharge Activity: Activity As Tolerated Referrals: PCPJesus [Other] (Pt to make own appointment when returning home) Prescriptions: Ciprofloxacin HCl [Cipro 500 mg Tablet] 500 mg PO BID #20 tablet Metronidazole [Flagyl 500 mg Tablet] 500 mg PO TID #21 tablet Oxycodone HCl/Acetaminophen [Percocet 5-325 mg Tablet] 1 tab PO ASDIR PRN #15 tab PRN Reason: Promethazine HCl [Phenergan 25 mg Tablet] 25 - 50 mg PO ASDIR PRN #12 tablet PRN Reason: Home Medications: Acetaminophen [Tylenol 325 mg Tablet] 650 mg PO Q4HP PRN tablet 05/06/19 Lorazepam [Ativan 0.5 mg Tablet] 0.5 mg PO Q12 5 Days #8 tab 05/06/19 Nicotine [Nicoderm 21 mg/24 Hr Transderm Patch] 1 each TD DAILY patch.td24 05/06/19 Pantoprazole Sodium [Protonix [address] Tablet] 40 mg PO QAM 14 Days #14 tablet.dr 05/06/19 Sucralfate [Carafate 1 gm Tablet] 1 gm PO ACHS 14 Days #56 tablet 05/06/19 Lisinopril [Zestril] 40 mg PO DAILY 05/09/19 Ciprofloxacin HCl [Cipro 500 mg Tablet] 500 mg PO BID #20 tablet 05/10/19 Metronidazole [Flagyl 500 mg Tablet] 500 mg PO TID #21 tablet 05/10/19 Oxycodone HCl/Acetaminophen [Percocet 5-325 mg Tablet] 1 tab PO ASDIR PRN #15 tab 05/10/19 Promethazine HCl [Phenergan 25 mg Tablet] 25 - 50 mg PO ASDIR PRN #12 tablet 05/10/19 History of Present Illiness History of Present Illness: JER LACEY is a 58 year old female who to ER with abdominal pain. Hospital Course Hospital Course: Presented to the ER with abdominal pain of 5-day duration. Patient states that she been recently hospitalized for abdominal pain and her pain with associated symptoms that improved during hospital course however upon discharge she did not get her medications filled and abdominal pain returned with associated nausea and vomiting. Patient stated that her nausea and vomiting prevented her from consuming any oral liquids or solids for the last 24 hours prior to arrival. Patient was found to have hypokalemia placed in observation status to replete. Patient was also found to have colitis on CT. At this time patient is to return home I will place patient on Cipro 500 g p.o. twice daily x10 days and Flagyl 500 mg 3 times daily for 7 days, Phenergan 25 mg p.o. every 4 6 hours as needed #12 and Percocet 5 mg / 325 mg 1 every 4-6 hours as needed #15 with no refills. Patient will follow-up with primary care within 1 week. Physical Exam Vital Signs: Temp Pulse Resp BP Pulse Ox 98.6 F 93 16 142/76 H 98 05/10/19 00:23 05/10/19 00:23 05/10/19 00:23 05/10/19 00:23 05/10/19 00:23 Intake & Output 05/09/19 05/10/19 05/11/19 06:59 06:59 06:59 Intake Total 1730 3050 100 Output Total 800 Balance 930 3050 100 Weight 53.2 kg 53.4 kg General appearance: PRESENT: no acute distress, well-developed, well-nourished Head exam: PRESENT: atraumatic, normocephalic Eye exam: PRESENT: conjunctiva pink, EOMI, PERRLA. ABSENT: scleral icterus Ear exam: PRESENT: normal external ear exam Mouth exam: PRESENT: moist, tongue midline Neck exam: ABSENT: carotid bruit, JVD, lymphadenopathy, thyromegaly Respiratory exam: PRESENT: clear to auscultation natalie. ABSENT: rales, rhonchi, wheezes Cardiovascular exam: PRESENT: RRR. ABSENT: diastolic murmur, rubs, systolic murmur Pulses: PRESENT: normal dorsalis pedis pul Vascular exam: PRESENT: normal capillary refill GI/Abdominal exam: PRESENT: normal bowel sounds, soft. ABSENT: distended, guarding, mass, organolmegaly, rebound, tenderness Rectal exam: PRESENT: deferred Extremities exam: PRESENT: full ROM. ABSENT: calf tenderness, clubbing, pedal edema Neurological exam: PRESENT: alert, awake, oriented to person, oriented to place, oriented to time, oriented to situation, CN II-XII grossly intact. ABSENT: motor sensory deficit Psychiatric exam: PRESENT: appropriate affect, normal mood. ABSENT: homicidal ideation, suicidal ideation Skin exam: PRESENT: dry, intact, warm. ABSENT: cyanosis, rash Results Laboratory Results: WBC 8.8 10^3/uL (4.0-10.5) 05/09/19 06:39 RBC 4.21 10^6/uL (3.72-5.28) 05/09/19 06:39 Hgb 11.3 g/dL (12.0-15.5) L 05/09/19 06:39 Hct 34.0 % (36.0-47.0) L 05/09/19 06:39 MCV 81 fl (80-97) 05/09/19 06:39 MCH 27.0 pg (27.0-33.4) 05/09/19 06:39 MCHC 33.4 g/dL (32.0-36.0) 05/09/19 06:39 RDW 15.9 % (11.5-14.0) H 05/09/19 06:39 Plt Count 66 10^3/uL (150-450) L 05/09/19 06:39 Lymph % (Auto) 13.0 % (13-45) 05/08/19 18:35 [place] % (Auto) 6.1 % (3-13) 05/08/19 18:35 Eos % (Auto) 1.6 % (0-6) 05/08/19 18:35 Baso % (Auto) 0.9 % (0-2) 05/08/19 18:35 Absolute Neuts (auto) 9.2 10^3/uL (1.7-8.2) H 05/08/19 18:35 Absolute Lymphs (auto) 1.5 10^3/uL (0.5-4.7) 05/08/19 18:35 Absolute Monos (auto) 0.7 10^3/uL (0.1-1.4) 05/08/19 18:35 Absolute Eos (auto) 0.2 10^3/uL (0.0-0.6) 05/08/19 18:35 Absolute Basos (auto) 0.1 10^3/uL (0.0-0.2) 05/08/19 18:35 Seg Neutrophils % 78.4 % (42-78) H 05/08/19 18:35 Sodium 140.5 mmol/L (137-145) 05/10/19 05:16 Potassium 4.4 mmol/L (3.6-5.0) D 05/10/19 05:16 Chloride 105 mmol/L (98-107) 05/10/19 05:16 Carbon Dioxide 29 mmol/L (22-30) 05/10/19 05:16 Anion Gap 7 (5-19) 05/10/19 05:16 BUN 9 mg/dL (7-20) 05/10/19 05:16 Creatinine 0.95 mg/dL (0.52-1.25) 05/10/19 05:16 Est GFR ( Amer) > 60 (>60) 05/10/19 05:16 Est GFR (MDRD) Non-Af > 60 (>60) 05/10/19 05:16 Glucose 91 mg/dL (75-110) 05/10/19 05:16 Calcium 9.2 mg/dL (8.4-10.2) 05/10/19 05:16 Magnesium 1.6 mg/dL (1.6-2.3) 05/09/19 06:39 Total Bilirubin 0.4 mg/dL (0.2-1.3) 05/08/19 18:35 Direct Bilirubin 0.1 mg/dL (0.0-0.4) 05/08/19 18:35 Neonat Total Bilirubin Not Reportable 05/08/19 18:35 Neonat Direct Bilirubin Not Reportable 05/08/19 18:35 Neonat Indirect Bili Not Reportable 05/08/19 18:35 AST 30 U/L (14-36) 05/08/19 18:35 ALT 31 U/L (<35) 05/08/19 18:35 Alkaline Phosphatase 69 U/L (38-126) 05/08/19 18:35 Total Protein 6.0 g/dL (6.3-8.2) L 05/08/19 18:35 Albumin 3.3 g/dL (3.5-5.0) L 05/08/19 18:35 Lipase 65.1 U/L (23-300) 05/08/19 18:35 TSH 3.65 uIU/mL (0.47-4.68) 05/09/19 06:39 Urine Color YELLOW 05/08/19 17:42 Urine Appearance CLEAR 05/08/19 17:42 Urine pH 8.0 (5.0-9.0) 05/08/19 17:42 Ur Specific [place] 1.012 05/08/19 17:42 Urine Protein 100 mg/dL (NEGATIVE) H 05/08/19 17:42 Urine Glucose (UA) NEGATIVE mg/dL (NEGATIVE) 05/08/19 17:42 Urine Ketones NEGATIVE mg/dL (NEGATIVE) 05/08/19 17:42 Urine Blood NEGATIVE (NEGATIVE) 05/08/19 17:42 Urine Nitrite (Reflex) NEGATIVE (NEGATIVE) 05/08/19 17:42 Urine Bilirubin NEGATIVE (NEGATIVE) 05/08/19 17:42 Urine Urobilinogen 2.0 mg/dL (<2.0) H 05/08/19 17:42 Leukocyte Esterase Rfl NEGATIVE (NEGATIVE) 05/08/19 17:42 Urine RBC (Auto) 1 /HPF 05/08/19 17:42 Urine WBC (Reflex) 1 /HPF 05/08/19 17:42 Squamous Epi Cells Auto 8 /HPF 05/08/19 17:42 Urine Mucus (Auto) RARE /LPF 05/08/19 17:42 Urine Ascorbic Acid NEGATIVE (NEGATIVE) 05/08/19 17:42 Impressions: Abdomen/Pelvis CT 05/08/19 18:07 IMPRESSION: Suggestion of mild wall thickening along segments of the transverse descending and sigmoid colon which May reflect mild colitis Gastric distention Basilar atelectasis and small bilateral effusions Additional changes as above Plan Time Spent: Greater than 30 Minutes Stroke Is this a Stroke Patient?: No Acute Heart Failure - Is this a Heart Failure Patient?: No
[2019-05-10 10:05] VITALS: BP 146/80
[2019-05-10] MEDS: FAMOTIDINE INJ/PF 20 MG/2 ML SDV IV SCH (10:17)
[2019-05-10] MEDS: AMLODIPINE BESYLATE 10 MG TABLET PO SCH (10:57)
== END 2019-05-10 11:10 | disposition home or self-care (01) ==
LOC: ER 15:46 → EH 22:47 → 4N 05-09 00:52
PROVIDERS: ADMIT Emergency Medicine; ATTEND Emergency Medicine
DX: R10.84 Generalized abdominal pain (principal); K52.9 Noninfective gastroenteritis and colitis, unspecified; I10 Essential (primary) hypertension; I67.1 Cerebral aneurysm, nonruptured; Z95.828 Presence of other vascular implants and grafts; Z98.84 Bariatric surgery status; R11.2 Nausea with vomiting, unspecified; E87.6 Hypokalemia; I25.10 Atherosclerotic heart disease of native coronary artery without angina pectoris; F17.200 Nicotine dependence, unspecified, uncomplicated; Z82.49 Family history of ischemic heart disease and other diseases of the circulatory system; Z90.49 Acquired absence of other specified parts of digestive tract; Z79.899 Other long term (current) drug therapy; Z91.040 Latex allergy status; Z86.69 Personal history of other diseases of the nervous system and sense organs
CPT/HCPCS: 93005; 96376; 99285; 96361; 96375; 96365; 96366; 96367; 36415 ×3; 83690; 83735; 84443; 85025; 85027; 80048 ×2; 80053; 81001; 74177; 93010; 94640; G0378 ×3; J3360 ×2; A9270 ×9; J3010; J0360; J3490 ×3; J2765 ×2; J2270 ×3; J2550 ×2; J2405; J3480; J7121; J7050 ×2; J7030; S0028 ×2; J2543 ×3; J7614